=== PATIENT | male | born 1990 | race African-American/Black ===

== ENCOUNTER 2022-09-28 14:47 | Outpatient (CLI) | payer OTHER, SELFPAY ==
[2022-09-28 15:49] LABS: Hematocrit 43.9 % (42.0-52.0); Hemoglobin 13.7 g/dL (14.0-18.0); Mean Corpuscular HGB Conc 31.2 g/dl (32-36); Mean Corpuscular Volume 86.4 fl (80-100); Mean Platelet Volume 10.2 fl (7.4-10.4); Platelet Count Result 304 k/mm3 (150-375); Red Blood Count 5.08 M/mm3 (4.6-6.20); Red Cell Distribution Width 12.8 % (11.5-14.5); White Blood Count 3.4 K/mm3 (4.5-10.0)
[2022-09-28 16:33] LABS: Basophils Absolute Manual 0.03 K/mm3 (0.0-0.1); Basophils Percent Manual 1 % (0-1); Lymphocytes Absolute Manual 1.97 K/mm3 (1.1-4.5); Monocytes Percent Manual 9 % (3-9); Neutrophils Percent Manual 32 % (46-73); Total Cells Counted 100
[2022-09-28 16:34] LABS: Platelet Estimate Adequate (Adequate)
[2022-09-28 16:35] LABS: Atypical Lymphocytes Present; Hypochromasia 1+ (NORMAL); Schistocytes None Seen (NORMAL)
[2022-09-28 16:38] LABS: Large Platelets Present
[2022-09-28 17:14] LABS: Folic Acid 7.7 ng/mL (2.76->20)
[2022-09-28 17:58] LABS: Iron 107 ug/dL (49-181)
[2022-09-28 18:07] LABS: Percent Iron Saturation 34 % (20-50)
== END 2022-09-28 14:48 | disposition home or self-care (01) ==
LOC: ANHLAB 14:51
PROVIDERS: Visit Provider Internal Medicine Hematology & Oncology
DX: D72.819 Decreased white blood cell count, unspecified (principal)
CPT/HCPCS: 36415; 82607; 82728; 82746; 83540; 83550; 85025

== ENCOUNTER 2022-10-05 09:33 | Outpatient (CLI) | payer OTHER, SELFPAY ==
--- NOTE | ~2022-10-05 | US_ITS ---
Abdominal Sonogram: Real-time sonographic imaging of the abdomen was performed. Clinical History: Leukopenia Findings: The liver appears normal with no evidence of mass lesion or bile duct dilatation. Main por trudi vein demonstrates normal direction of flow. The spleen is normal in size without evidence of foca l lesion. The gallbladder is well distended, and appears normal with no evidence of gallstone or wal l thickening. The common bile duct measures 3 mm. The visualized pancreas, aorta, and IVC are unrema rkable. The right kidney measures 9.6 cm in length and the left kidney measures 10.1 cm. There is n o hydronephrosis or renal calculus. Impression: Unremarkable abdominal ultrasound. Reviewed, dictated and finalized at location . Impression: Unremarkable abdominal ultrasound.
== END 2022-10-05 09:34 | disposition home or self-care (01) ==
PROVIDERS: PCP Internal Medicine; Visit Provider Internal Medicine Hematology & Oncology
DX: D72.819 Decreased white blood cell count, unspecified (principal)
CPT/HCPCS: 76700

== ENCOUNTER 2022-10-26 13:03 | Outpatient (CLI) | payer OTHER, SELFPAY ==
[2022-10-26 14:16] LABS: Eosinophils Absolute Auto 0.1 K/mm3 (0-0.3); Eosinophils Percent Auto 2.6 % (0-4.4); Hematocrit 49.2 % (42.0-52.0); Hemoglobin 15.2 g/dL (14.0-18.0); Immature Granulocyte Absolute 0.01 K/mm3 (0.00-0.031); Immature Granulocyte Percent A 0.3 % (0-0.5); Lymphocytes Percent Auto 49.3 % (18.3-44.2); Mean Corpuscular HGB Conc 30.9 g/dl (32-36); Mean Corpuscular Hemoglobin 26.5 pg (26-34); Mean Corpuscular Volume 85.9 fl (80-100); Mean Platelet Volume 9.8 fl (7.4-10.4); Monocytes Absolute Auto 0.3 K/mm3 (0.1-0.6); Monocytes Percent Auto 9.9 % (2.6-8.5); Neutrophils Absolute Auto 1.1 K/mm3 (1.3-6.7); Neutrophils Percent Auto 36.9 % (45.5-73.1); Platelet Count Result 326 k/mm3 (150-375); Red Blood Count 5.73 M/mm3 (4.6-6.20); Red Cell Distribution Width 12.6 % (11.5-14.5)
[2022-10-26 14:23] LABS: Alanine Aminotransferase 13 U/L (6-50); Albumin Level 4.6 g/dL (3.5-5.1); Alkaline Phosphatase 58 U/L (38-126); Anion Gap 7 mmol/L (8-16); Aspartate Amino Transferase 23 U/L (17-59); Bilirubin,Total 0.6 mg/dL (0.2-1.3); Blood Urea Nitrogen 17 mg/dL (9-20); Calcium 9.1 mg/dL (8.4-10.2); Carbon Dioxide 30 mmol/L (22-30); Chloride 101 mmol/L (98-107); Estimated Glomerular Filt Rate > 60; Glucose 90 mg/dL (65-110); Lactate Dehydrogenase 179 U/L (120-246); Potassium 4.5 mmol/L (3.4-5.0); Sodium 138 mmol/L (137-145)
[2022-10-26 15:04] LABS: HIV 1/2 Ab P24 Ag Result Negative (Negative)
== END 2022-10-26 13:04 | disposition home or self-care (01) ==
PROVIDERS: PCP Internal Medicine; Visit Provider Internal Medicine Hematology & Oncology
DX: D72.819 Decreased white blood cell count, unspecified (principal)
CPT/HCPCS: 36415; 80053; 83615; 85025; 86038; 86703; 88184; G0432

== ENCOUNTER 2023-05-31 17:18 | Outpatient (CLI) | payer OTHER, SELFPAY ==
[2023-05-31 17:37] LABS: Basophils Percent Auto 0.4 % (0.2-1.2); Eosinophils Absolute Auto 0.1 K/mm3 (0-0.3); Eosinophils Percent Auto 2.5 % (0-4.4); Hematocrit 42.6 % (42.0-52.0); Hemoglobin 13.1 g/dL (14.0-18.0); Lymphocytes Absolute Auto 2.43 K/mm3 (0.9-3.2); Lymphocytes Percent Auto 50.8 % (18.3-44.2); Mean Corpuscular HGB Conc 30.8 g/dl (32-36); Mean Corpuscular Hemoglobin 26.4 pg (26-34); Mean Corpuscular Volume 85.7 fl (80-100); Mean Platelet Volume 9.8 fl (7.4-10.4); Monocytes Absolute Auto 0.4 K/mm3 (0.1-0.6); Monocytes Percent Auto 8.8 % (2.6-8.5); Neutrophils Absolute Auto 1.8 K/mm3 (1.3-6.7); Neutrophils Percent Auto 37.5 % (45.5-73.1); Platelet Count Result 302 k/mm3 (150-375); Red Blood Count 4.97 M/mm3 (4.6-6.20); White Blood Count 4.8 K/mm3 (4.5-10.0)
[2023-05-31 17:44] LABS: Alanine Aminotransferase 9 U/L (6-50); Albumin Level 4.3 g/dL (3.5-5.1); Alkaline Phosphatase 64 U/L (38-126); Anion Gap 6 mmol/L (4-12); Aspartate Amino Transferase 20 U/L (17-59); Bilirubin,Total 0.6 mg/dL (0.2-1.3); Blood Urea Nitrogen 16 mg/dL (9-20); Calcium 9.1 mg/dL (8.4-10.2); Carbon Dioxide 30 mmol/L (22-30); Chloride 105 mmol/L (98-107); Estimated Glomerular Filt Rate > 60; Glucose 73 mg/dL (65-110); Potassium 4.2 mmol/L (3.4-5.0); Sodium 141 mmol/L (137-145)
[2023-05-31 18:50] LABS: Folic Acid 7.7 ng/mL (2.76->20)
== END 2023-05-31 17:19 | disposition home or self-care (01) ==
LOC: ANHLAB 17:19
PROVIDERS: Visit Provider Student in an Organized Health Care Education/Training Program
DX: D72.819 Decreased white blood cell count, unspecified (principal)
CPT/HCPCS: 36415; 80053; 82607; 82746; 85025

== ENCOUNTER 2024-05-01 10:14 | Emergency (ER) | payer OTHER, SELFPAY ==
--- NOTE | ~2024-05-01 | XR_ITS ---
EXAMINATION: XR chest 2V DATE: 05/01/2024 11:00 INDICATION: Lightheadedness. TECHNIQUE: Frontal and lateral views of the chest were obtained. COMPARISON: Chest 2 views 07/12/2018 FINDINGS: There is no pneumonia, pleural effusion, or pneumothorax. The heart size is normal. IMPRESSION: 1. No acute cardiopulmonary disease. Reviewed, dictated and finalized at location A. ERING MACHINE OFF BEARER
--- NOTE | 2024-05-01 10:17 | ECG_ITS ---
Test Date: 2024-05-01 10:21:10 Measurements Intervals [place] Rate: 73 P: 77 MI: 164 QRS: 83 QRSD: 91 T: 51 QT: 347 QTc: 383 Interpretive Statements SINUS RHYTHM NORMAL ECG No previous ECG available for comparison Electronically Signed On 05-01-2024 10:27:12 DRY PAN FEEDER by Douglas Jimenez D.O.
--- NOTE | 2024-05-01 10:18 | ED.GENADULT ---
HPI - General Adult General Chief complaint: Unspecified Stated complaint: lightheaded, chest discomfort, difficulty swallow Time Seen by Provider: 05/01/24 10:18 Focused HPI: This is a 33 year old male that presents to the ER for possible reaction to Amoxicillin. Reports he has had chest tightness, palpitations since taking the medication this morning. Recently had a root canal and was prescribed the antibiotic after. Reports he has had difficulty swallowing for a while. Reports he has had an endoscopy for this in the past. Denies shortness of breath, rash. GENERAL: Well-appearing, well-nourished, and in no acute distress. HEAD: Normocephalic, atraumatic. CHEST: Clear to auscultation. ?No respiratory distress. HEART: Regular rate and rhythm.? NEURO: ?Alert and oriented x3. Patient screened in triage and initial orders placed.? ?Additional care and disposition to be based upon?diagnostic testing and treatment. Related Data Home Medications ?Medication ?Instructions ?Recorded ?Confirmed ?Last Taken ?Type omeprazole 20 mg-sodium 1 packet PO DAILY 05/04/23 06/12/23 Unknown History bicarbonate 1,680 mg oral packet Allergies Allergy/AdvReac Type Severity Reaction Status Date / Time No Known Allergies Allergy Verified 06/12/23 13:04 Review of Systems Review of Systems: All systems reviewed & are unremarkable except as noted in HPI and below PMFSH Past Medical History Medical History (Updated 05/02/24 @ 00:01 by Hemal Vargas) Anxiety Asthma Surgical History Surgical History (Updated 03/21/19 @ 21:58 by Angie Baron) History of repair of ACL right Social History Social History (Updated 03/21/19 @ 21:59 by Angie Baron) Smoking status: Never smoker Gender identity (if verbalized by the patient): Male Spiritual care concerns: No Exam Narrative: GENERAL: Well-appearing, well-nourished, and in no acute distress. HEAD: Normocephalic, atraumatic. EYES: EOMI. ENT: Nares clear, no rhinorrhea or epistaxis. Mucous membranes moist. Oropharynx without tonsillar hypertrophy exudate or other lesions. NECK: Supple. No adenopathy or masses CHEST: Clear to auscultation. No respiratory distress. No wheezes rales or rhonchi HEART: Regular rate and rhythm. No murmur heard. Normal peripheral pulses. EXTREMITIES: Normal range of motion. No edema. SKIN: Warm, dry, no rash. NEURO: No focal deficits. Alert and oriented x3. PSYCH: Normal mood and affect Course Vital Signs Vital signs: Vital Signs Temperature 97.8 F 05/01/24 10:29 Pulse Rate 81 05/01/24 10:29 Respiratory Rate 14 05/01/24 10:29 Blood Pressure 125/78 05/01/24 10:29 Pulse Oximetry 98 05/01/24 10:29 Temperature 98.6 F 05/01/24 16:33 Pulse Rate 60 05/01/24 16:33 Respiratory Rate 14 05/01/24 16:33 Blood Pressure 124/83 05/01/24 16:33 Pulse Oximetry 99 05/01/24 16:33 Oxygen Delivery Room Air 05/01/24 13:28 Medical Decision Making Vital Signs Vital Signs: Vital Signs Temperature 97.8 F 05/01/24 10:29 Pulse Rate 81 05/01/24 10:29 Respiratory Rate 14 05/01/24 10:29 Blood Pressure 125/78 05/01/24 10:29 Pulse Oximetry 98 05/01/24 10:29 Temperature 98.6 F 05/01/24 16:33 Pulse Rate 60 05/01/24 16:33 Respiratory Rate 14 05/01/24 16:33 Blood Pressure 124/83 05/01/24 16:33 Pulse Oximetry 99 05/01/24 16:33 Oxygen Delivery Room Air 05/01/24 13:28 Lab Data 05/01/24 10:26 05/01/24 10:26 Labs: Lab Results 05/01/24 05/01/24 05/01/24 Range/Units 10:26 13:30 15:48 WBC 4.2 L (4.5-10.0) K/mm3 RBC 5.24 (4.6-6.20) M/mm3 Hgb 13.8 L (14.0-18.0) g/dL Hct 44.4 (42.0-52.0) % MCV 84.7 (80-100) fl MCH 26.3 (26-34) pg MCHC 31.1 L (32-36) g/dl RDW 13.3 (11.5-14.5) % Plt Count 312 (150-375) k/mm3 MPV 10.0 (7.4-10.4) fl Immature Gran % (Auto) 0.2 (0-0.5) % Neut % (Auto) 54.8 (45.5-73.1) % Lymph % (Auto) 35.8 (18.3-44.2) % Mayes % (Auto) 7.7 (2.6-8.5) % Eos % (Auto) 1.0 (0-4.4) % Baso % (Auto) 0.5 (0.2-1.2) % Lymph # (Auto) 1.49 (0.9-3.2) K/mm3 Mayes # (Auto) 0.3 (0.1-0.6) K/mm3 Eos # (Auto) 0.0 (0-0.3) K/mm3 Baso # (Auto) 0.0 (0.0-0.1) K/mm3 Abs Immat Gran (auto) 0.01 (0.00-0.031) K/mm3 Absolute Neuts (auto) 2.3 (1.3-6.7) K/mm3 Absolute Nucleated RBC 0.000 (0.0-0.012) K/mm3 Nucleated RBC % 0.0 (0.0-0.2) % PT 14.0 (11.1-14.7) Seconds INR 1.0 APTT 34.2 (22.3-36.8) Seconds Sodium 140 (137-145) mmol/L Potassium 4.0 (3.4-5.0) mmol/L Chloride 102 (98-107) mmol/L Carbon Dioxide 26 (22-30) mmol/L Anion Gap 12 (4-12) mmol/L BUN 11 D (9-20) mg/dL Creatinine 0.87 (0.7-1.3) mg/dL Estim Creat Clear Calc Not Reportable Estimated GFR > 60 (59 - ) Glucose 99 (65-110) mg/dL Calcium 9.1 (8.4-10.2) mg/dL Total Bilirubin 0.6 (0.2-1.3) mg/dL AST 18 (17-59) U/L ALT 14 (6-50) U/L Alkaline Phosphatase 60 (38-126) U/L Troponin I < 0.012 < 0.012 < 0.012 (0.000-0.034) ng/mL Total Protein 7.0 (6.3-8.2) g/dL Albumin 4.3 (3.5-5.1) g/dL Lipase 74 (23-300) U/L Imaging Data Radiologist's impression: ITS Impressions Chest X-Ray 05/01/24 11:03 IMPRESSION: 1. No acute cardiopulmonary disease. Critical Care Time Critical Care Time Critical Care Time: No Discharge Plan Discharge Clinical Impression: Esophagitis Patient Disposition: Home, Self-Care Condition: Stable Instructions: Corrosive Esophagitis (ED) Additional Instructions: Return to the emergency department if you develop severe abdominal pain, severe nausea and vomiting to the point where you are unable to keep down fluids, if you develop chest pain or difficulty breathing, blood in your stool, dizziness or fainting, or if you develop any other new or concerning symptoms as these could be signs of more serious medical illness. Try to stay well hydrated. Patient Language: German Prescriptions: New omeprazole 40 mg capsule,delayed release(DR/EC) 40 mg PO BID Qty: 30 0RF lidocaine HCl [Lidocaine Viscous] 2 % solution 1 applic mucous membrane TID Qty: 300 0RF lidocaine HCl [Lidocaine Viscous] 2 % solution 1 applic mucous membrane TID PRN (Reason: pain) Qty: 300 0RF omeprazole 40 mg capsule,delayed release(DR/EC) 40 mg PO DAILY Qty: 30 0RF No Action omeprazole-sodium bicarbonate 20-1,680 mg Packet 1 packet PO DAILY Follow-up/Referrals: UNKNOWN,DOCTOR [Primary Care Provider] - 1 Week
[2024-05-01 10:29] VITALS: BP 125/78; PULSE 81; RESP 14; TEMP 36.6; O2SAT 98
[2024-05-01 10:33] LABS: Basophils Percent Auto 0.5 % (0.2-1.2); Hematocrit 44.4 % (42.0-52.0); Hemoglobin 13.8 g/dL (14.0-18.0); Immature Granulocyte Absolute 0.01 K/mm3 (0.00-0.031); Immature Granulocyte Percent A 0.2 % (0-0.5); Lymphocytes Absolute Auto 1.49 K/mm3 (0.9-3.2); Lymphocytes Percent Auto 35.8 % (18.3-44.2); Mean Corpuscular HGB Conc 31.1 g/dl (32-36); Mean Corpuscular Hemoglobin 26.3 pg (26-34); Mean Corpuscular Volume 84.7 fl (80-100); Monocytes Absolute Auto 0.3 K/mm3 (0.1-0.6); Monocytes Percent Auto 7.7 % (2.6-8.5); Neutrophils Absolute Auto 2.3 K/mm3 (1.3-6.7); Neutrophils Percent Auto 54.8 % (45.5-73.1); Platelet Count Result 312 k/mm3 (150-375); Red Blood Count 5.24 M/mm3 (4.6-6.20); Red Cell Distribution Width 13.3 % (11.5-14.5); White Blood Count 4.2 K/mm3 (4.5-10.0)
[2024-05-01 10:44] LABS: Alanine Aminotransferase 14 U/L (6-50); Albumin Level 4.3 g/dL (3.5-5.1); Alkaline Phosphatase 60 U/L (38-126); Anion Gap 12 mmol/L (4-12); Aspartate Amino Transferase 18 U/L (17-59); Bilirubin,Total 0.6 mg/dL (0.2-1.3); Blood Urea Nitrogen 11 mg/dL (9-20); Calcium 9.1 mg/dL (8.4-10.2); Carbon Dioxide 26 mmol/L (22-30); Chloride 102 mmol/L (98-107); Estimated Glomerular Filt Rate > 60; Glucose 99 mg/dL (65-110); Lipase 74 U/L (23-300); Sodium 140 mmol/L (137-145)
[2024-05-01 10:56] LABS: Troponin I < 0.012 ng/mL (0.000-0.034)
[2024-05-01 11:04] LABS: Partial Thromboplastin Time 34.2 Seconds (22.3-36.8)
--- OUTSIDE RECORDS SUMMARY | 2024-05-01 11:43 | XMS_ITS | Clinical Summary ---
Author Organization [facility] Address [address] Attn: Epic Prelude ADT FAIZAN BELTRAN [id number] Care Team Providers Care Justice Professor Name Role Phone Joe Martinez MD Primary Care Provider [phone] Allergies No known active allergies Medications sucralfate (Carafate) 100 mg/mL suspension Take 10 mL (1 Gram) by mouth every 6 hours. 414 mL 1 03/10/19 24 Active pantoprazole (PROTONIX) 40 mg Tablet, Delayed Release (E.C.) Take 1 Tablet by mouth daily. 09/12/19 24 Active cyanocobalamin (VITAMIN B-12) 1,000 mcg/mL Solution Inject 1 mL (1,000 mcg) by intramuscular injection every 30 days. 1 mL 5 10/12/19 24 Active Needle, Disp, 22 G 22 gauge x 1 1/2 Needle Use as directed with vitamin B 12 injection intramuscularly on a monthly basis 1 Each 4 10/12/19 24 Active Active Problems No known active problems Encounters Date Type Department Care Team Description 04/30/2024 External Device Data [facility] Provider, Abstract 03/26/2024 External Device Data [facility] Provider, Abstract 03/19/2024 External Device Data [facility] Provider, Abstract 02/09/2024 Telephone [facility] Oncology and Hematology - [place] [address] [place] [address] Abel Locke MD lab work for appointment 02/08/2024 Orders Only [facility] Oncology and Hematology - [place] [address] [place] [address] Abel Locke MD Chronic anemia (Primary Dx); Leukopenia, unspecified type from Last 3 Months Family History Relation Name Status Comments Brother Alive Father Alive Mother Alive Sister Alive Social History Tobacco Use Types Packs/Day Years Used Date Smoking Tobacco: Never Smokeless Tobacco: Never Tobacco Cessation:Counseling Given: Not Answered Alcohol Use Standard Drinks/Week Comments Not Currently 0 (1 standard drink = 0.6 oz pur e alcohol) Sex and Gender Information Value Date Recorded Sex Assigned at Not on file Legal Sex Male 1:39 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 Gender Identity Not on file Sexual Orientation Not on file Last Filed Vital Signs Vital Sign Reading Time Taken Comments Blood Pressure 122/83 10/12/2023 1:50 PM CDT Pulse 72 10/12/2023 1:50 PM CDT Temperature 36.7 C (98 F) 10/12/2023 1:50 PM CDT Respiratory Rate 16 10/12/2023 1:50 PM CDT Oxygen Saturation 93% 10/12/2023 1:50 PM CDT Inhaled Oxygen Concentration - - Weight 75.3 kg (166 lb) 10/12/2023 1:50 PM CDT Height 188 cm (6' 2 ) 09/15/2022 3:54 PM CDT Body Mass Index 21.31 09/15/2022 3:54 PM CDT Plan of Treatment Upcoming Encounters Date Type Department Care Team (Late st Contact Info) Description 06/03/2024 1:15 PM CDT Office Visit [facility] Oncology and Hematology - [place] [address] [place] [address] [facility] [address] [place] [address] Abel Locke MD [address] [facility] [address] [place] [address] Health Maintenance Due Date Last Done Comments INFLUENZA VACCINE (#1) 2023 Preventative Visit- Commercial 03/06/2024 DTAP/TDAP/TD VACCINES (8 - Td or Tdap) 11/10/2027 11/09/2017, 08/24/2006, 10/23/1995, Additional history exists HEPATITIS B VACCINES Completed 06/18/2002, 03/06/2000, 09/13/1996 HPV VACCINES Aged Out No longer eligi ble based on patient's age to complete this topic Insurance INDIVIDUAL EXCHANGE [id number] INDIVIDUAL EXCHANGE [id number] Care Teams Justice Professor Relationship Specialty Start Date End Date Joe Martinez MD [address] [place], [place] [phone] PCP - General Internal Medicine 09/15/22
--- OUTSIDE RECORDS SUMMARY | 2024-05-01 11:43 | XMS_ITS | Encounter Summary ---
Author Organization [facility] Address [address] [place] [address] Care Team Providers Care Flight Information Expediter Name Role Phone Joe Martinez MD Primary Care Provider [phone] Encounter Details Date Type Department Care Team (Late st Contact Info) Description 04/30/2024 External Device Data [facility] Provider, Abstract NO ADDRESS ON FILE Social History Tobacco Use Types Packs/Day Years Used Date Smoking Tobacco: Never Smokeless Tobacco: Never Alcohol Use Standard Drinks/Week Comments Not Currently 0 (1 standard drink = 0.6 oz pur e alcohol) Sex and Gender Information Value Date Recorded Sex Assigned at Not on file Legal Sex Male 1:39 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 Gender Identity Not on file Sexual Orientation Not on file documented as of this encounter Plan of Treatment Upcoming Encounters Date Type Department Care Team (Late st Contact Info) Description 06/03/2024 1:15 PM CDT Office Visit [facility] Oncology and Hematology - [place] [address] [place] [phone] [place] [address] [place] [address] [address] [place] [address] documented as of this encounter Visit Diagnoses Not on filedocumented in this encounter Care Teams Flight Information Expediter Relationship Specialty Start Date End Date Joe Martinez MD [address] [place] [phone] PCP - General Internal Medicine 09/15/22 documented as of this encounter
--- OUTSIDE RECORDS SUMMARY | 2024-05-01 11:43 | XMS_ITS | Data Portability ---
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 Role Phone LORA MARTINEZ Primary Care Provider Unavailabl e Assessment Encounter Date Assessment Date Assessment LastModified by Organization Details LastModified Time 05/15/2023 05/15/2023 Conservative measures for GERD in addition to the medication follow-up on leukopenia Debrox eardrops Follow-up 6 months Not available 05/15/2023 21:48:10 12/05/2023 12/05/2023 blood work has been ordered safe sex practices have been discussed he will follow up with me in 4-6 months continue current therapy refill his omeprazole [email or web address] Not available 12/17/2023 15:52:44 03/20/2024 03/20/2024 obtain his upper endoscopy report repeat his thyroid studies patient never did get his HIV testing we will go ahead and arrange for that switch him to omeprazole as he continues to have some upper GI symptomatology would like for him to see GI. If he has trouble swallowing the omeprazole we may have to go lansoprazole solutabs. He needs to continue with his B12 as. He has been Hematology Oncology for that with regards to his leukopenia and mild anemia. Follow up with me in 4 months [email or web address] Not available 03/20/2024 22:00:54 04/16/2024 04/16/2024 he has been seen by Hematology he needs his B12 shots also needs to see GI again because he has the ongoing issues with swallowing. I will refill his Prevacid he has some insurance issues apparently I am not on his plan and he is going to have to decide whether he switches insurances or he transfers to another physician who is in network for him he will let us know as soon as possible [email or web address] Not available 04/16/2024 22:13:15 Plan of Treatment Reminders Order Date Submit Date Provider Last Modified By Organization Details Last Modified Time Details Appointments None recorded. Lab T3, free, serum or plasma 2024 025 MAHENDRAJANE Gilbert, [address], [place], [address], 5 13:14:27 TSH + free T4, serum 2024 025 MAHENDRAJANE Gilbert, [address], [place], [address], 5 13:14:25 HIV 1 + 2 RNA panel, RENO+probe, serum or plasma 2024 025 MAHENDRAJANE Gilbert, [address], [place], [address], 5 19:08:26 [facility] w/ auto diff [facility] [address], [place], [address], 5 13:14:26 HIV 1 + 2 RNA panel, RENO+probe, serum or plasma [email or web address], [address], [place], [address], 4 12:25:08 RPR (rapid plasma reagin), serum 2023 024 MAHENDRAJANE Gilbert, [address], [place], [address], 4 20:10:02 hsv (1+2) igg, serum [facility] [address], [place], [address], 4 20:09:55 CT + NG RNA, urine 2023 024 [email or web address] [address], [place], [address], 4 12:46:27 vitamin B12 + folate, serum or blood 2023 024 [facility], [address], [place], [address], 4 20:09:59 CBC w/ auto diff 2023 024 [facility], [address], [place], [address], 4 20:10:00 CMP, serum or plasma 2023 024 [facility], [address], [place], [address], 4 20:09:58 T3, free, serum or plasma 2023 024 [facility], [address], [place], [address], 4 20:10:03 TSH + free T4, serum 2023 024 [facility], [address], [place], [address], 4 20:09:57 CBC w/ auto diff 2023 024 [facility], [address], [place], [address], 09:17:16 CMP, serum or plasma 2023 024 [facility], [address], [place], [address], 09:17:15 Referral None recorded. Procedures None recorded. Surgeries None recorded. Imaging None recorded. Medication Orders lansoprazo le 30 mg capsule,de layed release [address] [id number], [address], [place], [place], [id number], 5 17:51:56 omeprazole 20 mg capsule,de layed release [address] [id number], [address] , [place], [place], [id number], 5 17:26:38 Debrox 6.5 % ear drops 2023 024 [id number], [address] , [place], [place], [id number], 15:06:38 Patient TargetsNo targets recorded. Patient InstructionsNo instructions recorded. Reason for Referral None Reported. Results Created Date Observation Date Name Description Value Unit Range Abnormal Flag Note LastModifiedBy Organization Detail LastModifiedTime 12/05/1912/06/2023 COMP. METAB OLIC PANEL (14) glucose 70 mg/dL 70-99 Not Available [facility] ([facility]) [address] [facility] [address], [place], [address], 12/06/2023 09:17:15 12/05/19 24 12/06/2023 COMP. METAB OLIC PANEL (14) BUN 12 mg/dL 6-20 Not Available [facility] ([facility]) [address] [place], [address], 12/06/2023 09:17:15 12/05/19 24 12/06/2023 COMP. METAB OLIC PANEL (14) creatinine 1.11 mg/dL 0.76-1 .27 Not Available [facility] ([facility]) [address] [facility] [place], [address], 12/06/2023 09:17:15 12/05/19 24 12/06/2023 COMP. METAB OLIC PANEL (14) eGFR 90 mL/mi n/1.7 3 >59 Not Available [facility] ([facility]) [address] [facility] [place], [address], 12/06/2023 09:17:15 12/05/19 24 12/06/2023 COMP. METAB OLIC PANEL (14) BUN/creatini ne ratio 11 9-20 Not Available [facility] ([facility]) [address] [facility] [place], [address], 12/06/2023 09:17:15 12/05/19 24 12/06/2023 COMP. METAB OLIC PANEL (14) sodium 141 mmol/ L 134-14 4 Not Available [facility] ([facility]) [address] [facility] [place], [address], 12/06/2023 09:17:15 12/05/19 24 12/06/2023 COMP. METAB OLIC PANEL (14) potassium 4.2 mmol/ L 3.5-5. 2 Not Available [facility] ([facility]) [address] [facility] [place], [address], 12/06/2023 09:17:15 12/05/19 24 12/06/2023 COMP. METAB OLIC PANEL (14) chloride 100 mmol/ L 96-106 Not Available [facility] ([facility]) [address] [facility] [place], [address], 12/06/2023 09:17:15 12/05/19 24 12/06/2023 COMP. METAB OLIC PANEL (14) carbon dioxide, total 25 mmol/ L 20-29 Not Available [facility] ([facility]) [address] [facility], [place], [address], 12/06/2023 09:17:15 12/05/1912/06/2023 COMP. METAB OLIC PANEL (14) calcium 9.7 mg/dL 8.7-10 .2 Not Available [facility] ([facility]) [address] [place], [address], 12/06/2023 09:17:15 12/05/1912/06/2023 COMP. METAB OLIC PANEL (14) protein, total 7.3 g/dL 6.0-8. 5 Not Available [facility] ([facility] [address] [place], [address], 12/06/2023 09:17:15 12/05/1912/06/2023 COMP. METAB OLIC PANEL (14) albumin 4.7 g/dL 4.1-5. 1 Not Available [facility] ([facility]) [address] [facility] [place], [address], 12/06/2023 09:17:15 12/05/1912/06/2023 COMP. METAB OLIC PANEL (14) globulin, total 2.6 g/dL 1.5-4. 5 Not Available [facility] ([facility]) [address] [facility] [place], [address], 12/06/2023 09:17:15 12/05/1912/06/2023 COMP. METAB OLIC PANEL (14) bilirubin, total 0.3 mg/dL 0.0-1. 2 Not Available [facility] ([facility]) [address] [facility] [place], [address], 12/06/2023 09:17:15 12/05/1912/06/2023 COMP. METAB OLIC PANEL (14) alkaline phosphatase 76 IU/L 44-121 Not Available [facility]) [address] [facility] [place], [address], 12/06/2023 09:17:15 12/05/1912/06/2023 COMP. METAB OLIC PANEL (14) AST (SGOT) 15 IU/L 0-40 Not Available [facility] ([facility]) [address] [facility], [place], [address], 12/06/2023 09:17:15 12/05/1912/06/2023 COMP. METAB OLIC PANEL (14) ALT (SGPT) 7 IU/L 0-44 Not Available [facility] ([facility]) [address] [facility], [place], [address], 12/06/2023 09:17:15 12/05/1912/06/2023 CBC WITH DIFFE RENTI AL/PL ATELE T WBC 3.8 x10e3 /uL 3.4-10 .8 Not Available [facility] ([facility]) [address] [facility], [place], [address], 12/06/2023 09:17:16 12/05/1912/06/2023 CBC WITH DIFFE RENTI AL/PL ATELE T RBC 5.41 x10e6 /uL 4.14-5 .80 Not Available [facility] ([facility]) [address] [facility], [place], [address], 12/06/2023 09:17:16 12/05/1912/06/2023 CBC WITH DIFFE RENTI AL/PL ATELE T hemoglobin 14.2 g/dL 13.0-1 7.7 Not Available [facility] ([facility]) [address] [place], [address], 12/06/2023 09:17:16 12/05/1912/06/2023 CBC WITH DIFFE RENTI AL/PL ATELE T hematocrit 44.9 % 37.5-5 1.0 Not Available [facility] ([facility]) [address] [place], [address], 12/06/2023 09:17:16 12/05/1912/06/2023 CBC WITH DIFFE RENTI AL/PL ATELE T MCV 83 fL 79-97 Not Available [facility] ([facility]) [address] [facility], [place], [address], 12/06/2023 09:17:16 12/05/1912/06/2023 CBC WITH DIFFE RENTI AL/PL ATELE T MCH 26.2 pg 26.6-3 3.0 below low normal Not Available [facility] ([facility]) [address] [facility], [place], [address], 12/06/2023 09:17:16 12/05/1912/06/2023 CBC WITH DIFFE RENTI AL/PL ATELE T MCHC 31.6 g/dL 31.5-3 5.7 Not Available [facility] ([facility]) [address] [facility], [place], [address], 12/06/2023 09:17:16 12/05/1912/06/2023 CBC WITH DIFFE RENTI AL/PL ATELE T RDW 12.8 % 11.6-1 5.4 Not Available [facility] ([facility]) [address] [facility], [place], [address], 12/06/2023 09:17:16 12/05/1912/06/2023 CBC WITH DIFFE RENTI AL/PL ATELE T platelets 317 x10e3 /uL 150-45 0 Not Available [facility] ([facility]) [address] [facility], [place], [address], 12/06/2023 09:17:16 12/05/1912/06/2023 CBC WITH DIFFE RENTI AL/PL ATELE T neutrophils 30 % notest ab. Not Available [facility] ([facility]) [address] [facility], [place], [address], 12/06/2023 09:17:16 12/05/1912/06/2023 CBC WITH DIFFE RENTI AL/PL ATELE T lymphs 58 % notest ab. Not Available [facility] ([facility]) [address] [facility], [place], [address], 12/06/2023 09:17:16 12/05/19 24 12/06/2023 CBC WITH DIFFE RENTI AL/PL ATELE T monocytes 8 % notest ab. Not Available [facility] ([facility]) [address] [facility], [place], [address], 12/06/2023 09:17:16 12/05/1912/06/2023 CBC WITH DIFFE RENTI AL/PL ATELE T eos 3 % notest ab. Not Available [facility] ([facility]) [address] [facility], [place], [address], 12/06/2023 09:17:16 12/05/1912/06/2023 CBC WITH DIFFE RENTI AL/PL ATELE T basos 1 % notest ab. Not Available [facility] ([facility]) [address] [facility], [place], [address], 12/06/2023 09:17:16 12/05/1912/06/2023 CBC WITH DIFFE RENTI AL/PL ATELE T neutrophils (absolute) 1.1 x10e3 /uL 1.4-7. 0 below low normal Not Available [facility] ([facility]) [address] [facility], [place], [address], 12/06/2023 09:17:16 12/05/1912/06/2023 CBC WITH DIFFE RENTI AL/PL ATELE T lymphs (absolute) 2.2 x10e3 /uL 0.7-3. 1 Not Available [facility] ([facility]) [address] [facility], [place], [address], 12/06/2023 09:17:16 12/05/1912/06/2023 CBC WITH DIFFE RENTI AL/PL ATELE T monocytes(ab solute) 0.3 x10e3 /uL 0.1-0. 9 Not Available [facility] ([facility]) [address] [facility], [place], [address], 12/06/2023 09:17:16 12/05/19 24 12/06/2023 CBC WITH DIFFE RENTI AL/PL ATELE T eos (absolute) 0.1 x10e3 /uL 0.0-0. 4 Not Available [facility] ([facility]) [address] [facility], [place], [address], 12/06/2023 09:17:16 12/05/1912/06/2023 CBC WITH DIFFE RENTI AL/PL ATELE T baso (absolute) 0.0 x10e3 /uL 0.0-0. 2 Not Available [facility] ([facility]) [address] [facility], [place], [address], 12/06/2023 09:17:16 12/05/1912/06/2023 CBC WITH DIFFE RENTI AL/PL ATELE T immature granulocytes 0 % notest ab. Not Available [facility] ([facility]) [address] [facility], [place], [address], 12/06/2023 09:17:16 12/05/1912/06/2023 CBC WITH DIFFE RENTI AL/PL ATELE T immature grans (abs) 0.0 x10e3 /uL 0.0-0. 1 Not Available [facility] ([facility]) [address] [facility], [place], [address], 12/06/2023 09:17:16 12/05/1912/06/2023 HSV 1 AND 2 AB, IGG hsv 1 IgG, type spec <0.91 index 0.00-0 .90 Negat roberto carlos <0.91 Equiv ocal 0.91 - 1.09 Posit roberto carlos >1.09 Note: Negat roberto carlos indic ates no antib odies detec ymrna to HSV-1 . Equiv ocal may sugge st early infec tion. If clini claudia appro priat e, retes t at later date. Posit roberto carlos indic ates antib odies detec myrna to HSV-1 . Eff ectiv e Octob er 2023 the refer ence inter glenroy will be clemens ing to: Non React roberto carlos. Not Available [facility] ([facility]) [address], [place], [address], 12/07/2023 20:09:55 12/05/19 24 12/06/2023 HSV 1 AND 2 AB, IGG hsv 2 IgG, type spec <0.91 Negat roberto carlos <0.91 Equiv ocal 0.91 - 1.09 Posit roberto carlos >1.09 HSV-2 Antib gypsy Inter preta tion: Curre nt guide lines and recom menda tions do not recom mend routi ne scree leeanna for HSV-2 in asymp tomat ic indiv idual s, inclu ding those that are pregn ant. A negat roberto carlos antib gypsy resul t indic ates no detec table antib odies to HSV-2 were found . If recen t expos ure is suspe cted, retes t in 4 to 6 weeks . Equiv ocal sampl es shoul d be retes myrna in 4 to 6 weeks . A posit roberto carlos resul t indic ates the prese nce of detec table IgG antib gypsy to HSV-2 . FALSE POSIT ROBERTO CARLOS RESUL TS MAY OCCUR . Repea t testi ng, or testi ng by a diffe rent andrewo karen, may be indic ated in some setti ngs (e.g. patie nts with low likel ihood of HSV infec tion) . If clini claudia appro priat e, retes t 4 to 6 weeks later . HSV-2 IgG antib gypsy testi ng resul ts shoul d be clini claudia corre lated . Eff ectiv e Octob er 2023 the refer ence inter glenroy will be clemens ing to: Non React roberto carlos. Not Available [facility] ([facility]) [address] [facility], [place], [address], 12/07/2023 20:09:55 12/05/1912/07/2023 CT NG M GENIT ALIUM RENO, URINE mycoplasma genitalium RENO Negati ve negati ve Not Available [facility] ([facility]) [address] [place], [address], 12/07/2023 20:09:56 12/05/1912/07/2023 CT NG M GENIT ALIUM RENO, URINE chlamydia trachomatis, RENO Negati ve negati ve Not Available [facility] ([facility]) [address] [place], [address], 12/07/2023 20:09:56 12/05/1912/07/2023 CT NG M GENIT ALIUM RENO, URINE neisseria gonorrhoeae, RENO Negati ve negati ve Not Available [facility] ([facility]) [address] [place], [address], 12/07/2023 20:09:56 12/05/1912/06/2023 TSH+F REE T4 TSH 4.820 uIU/m L 0.450- 4.500 above high normal Not Available [facility] ([facility]) [address] [place], [address], 12/07/2023 20:09:57 12/05/1912/06/2023 TSH+F REE T4 T4,free(dire ct) 1.43 NG/dL 0.82-1 .77 Not Available [facility] ([facility]) [address] [place], [address], 12/07/2023 20:09:57 12/05/1912/06/2023 COMP. METAB OLIC PANEL (14) glucose 72 mg/dL 70-99 Not Available [facility] ([facility]) [address] [place], [address], 12/07/2023 20:09:58 12/05/19 24 12/06/2023 COMP. METAB OLIC PANEL (14) BUN 13 mg/dL 6-20 Not Available [facility] ([facility]) [address] [facility], [place], [address], 12/07/2023 20:09:58 12/05/19 24 12/06/2023 COMP. METAB OLIC PANEL (14) creatinine 1.10 mg/dL 0.76-1 .27 Not Available [facility] ([facility]) [address] [facility], [place], [address], 12/07/2023 20:09:58 12/05/19 24 12/06/2023 COMP. METAB OLIC PANEL (14) eGFR 91 mL/mi n/1.7 3 >59 Not Available [facility] ([facility]) [address] [facility], [place], [address], 12/07/2023 20:09:58 12/05/19 24 12/06/2023 COMP. METAB OLIC PANEL (14) BUN/creatini ne ratio 12 9-20 Not Available [facility] ([facility]) [address] [facility], [place], [address], 12/07/2023 20:09:58 12/05/19 24 12/06/2023 COMP. METAB OLIC PANEL (14) sodium 141 mmol/ L 134-14 4 Not Available [facility] ([facility]) [address] [place], [address], 12/07/2023 20:09:58 12/05/19 24 12/06/2023 COMP. METAB OLIC PANEL (14) potassium 4.5 mmol/ L 3.5-5. 2 Not Available [facility] ([facility]) [address] [facility], [place], [address], 12/07/2023 20:09:58 12/05/19 24 12/06/2023 COMP. METAB OLIC PANEL (14) chloride 103 mmol/ L 96-106 Not Available [facility] ([facility]) [address] [facility] [place], [address], 12/07/2023 20:09:58 12/05/19 24 12/06/2023 COMP. METAB OLIC PANEL (14) carbon dioxide, total 24 mmol/ L 20-29 Not Available [facility] ([facility]) [address] [facility], [place], [address], 12/07/2023 20:09:58 12/05/19 24 12/06/2023 COMP. METAB OLIC PANEL (14) calcium 9.5 mg/dL 8.7-10 .2 Not Available [facility] ([facility]) [address] [facility], [place], [address], 12/07/2023 20:09:58 12/05/19 24 12/06/2023 COMP. METAB OLIC PANEL (14) protein, total 6.9 g/dL 6.0-8. 5 Not Available [facility] ([facility]) [address] [facility] [place], [address], 12/07/2023 20:09:58 12/05/19 24 12/06/2023 COMP. METAB OLIC PANEL (14) albumin 4.6 g/dL 4.1-5. 1 Not Available [facility] ([facility]) [address] [facility] [place], [address], 12/07/2023 20:09:58 12/05/19 24 12/06/2023 COMP. METAB OLIC PANEL (14) globulin, total 2.3 g/dL 1.5-4. 5 Not Available [facility] ([facility]) [address] [facility] [place], [address], 12/07/2023 20:09:58 12/05/19 24 12/06/2023 COMP. METAB OLIC PANEL (14) bilirubin, total 0.3 mg/dL 0.0-1. 2 Not Available [facility] ([facility]) [address] [facility], [place], [address], 12/07/2023 20:09:58 12/05/19 24 12/06/2023 COMP. METAB OLIC PANEL (14) alkaline phosphatase 77 IU/L 44-121 Not Available [facility] ([facility]) [address] [facility], [place], [address], 12/07/2023 20:09:58 12/05/19 24 12/06/2023 COMP. METAB OLIC PANEL (14) AST (SGOT) 9 IU/L 0-40 Not Available [facility] ([facility]) [address] [facility], [place], [address], 12/07/2023 20:09:58 12/05/19 24 12/06/2023 COMP. METAB OLIC PANEL (14) ALT (SGPT) 5 IU/L 0-44 Not Available [facility] ([facility]) [address] [facility], [place], [address], 12/07/2023 20:09:58 12/05/19 24 12/06/2023 VITAM IN B12 AND FOLAT E vitamin B12 597 pg/mL 232-12 45 Not Available [facility] ([facility]) [address] [facility], [place], [address], 12/07/2023 20:09:59 12/05/19 24 12/06/2023 VITAM IN B12 AND FOLAT E folate (folic acid), serum 7.7 NG/mL >3.0 A serum folat e amy ntrat ion of less than 3.1 ng/mL is consi dered to repre sent clini frandy defic iency . Not Available [facility] ([facility]) [address] [facility], [place], [address], 12/07/2023 20:09:59 12/05/19 24 12/06/2023 CBC WITH DIFFE RENTI AL/PL ATELE T WBC 3.6 x10e3 /uL 3.4-10 .8 Not Available [facility] ([facility]) [address] [facility], [place], [address], 12/07/2023 20:10:00 12/05/19 24 12/06/2023 CBC WITH DIFFE RENTI AL/PL ATELE T RBC 5.51 x10e6 /uL 4.14-5 .80 Polyc hroma edy prese nt Ovalo cytes prese nt. Not Available [facility] ([facility]) [address] [facility], [place], [address], 12/07/2023 20:10:00 12/05/1912/06/2023 CBC WITH DIFFE RENTI AL/PL ATELE T hemoglobin 14.5 g/dL 13.0-1 7.7 Not Available [facility] ([facility]) [address] [place], [address], 12/07/2023 20:10:00 12/05/19 24 12/06/2023 CBC WITH DIFFE RENTI AL/PL ATELE T hematocrit 46.6 % 37.5-5 1.0 Not Available [facility] ([facility]) [address] [facility], [place], [address], 12/07/2023 20:10:00 12/05/19 24 12/06/2023 CBC WITH DIFFE RENTI AL/PL ATELE T MCV 85 fL 79-97 Not Available [facility] ([facility]) [address] [place], [address], 12/07/2023 20:10:00 12/05/19 24 12/06/2023 CBC WITH DIFFE RENTI AL/PL ATELE T MCH 26.3 pg 26.6-3 3.0 below low normal Not Available [facility] ([facility]) [address] [facility], [place], [address], 12/07/2023 20:10:00 12/05/19 24 12/06/2023 CBC WITH DIFFE RENTI AL/PL ATELE T MCHC 31.1 g/dL 31.5-3 5.7 below low normal Not Available [facility] ([facility]) [address] [facility], [place], [address], 12/07/2023 20:10:00 12/05/19 24 12/06/2023 CBC WITH DIFFE RENTI AL/PL ATELE T RDW 12.6 % 11.6-1 5.4 Not Available [facility] ([facility]) [address] [facility], [place], [address], 12/07/2023 20:10:00 12/05/19 24 12/06/2023 CBC WITH DIFFE RENTI AL/PL ATELE T platelets 316 x10e3 /uL 150-45 0 Not Available [facility] ([facility]) [address] [facility], [place], [address], 12/07/2023 20:10:00 12/05/19 24 12/06/2023 CBC WITH DIFFE RENTI AL/PL ATELE T neutrophils 29 % notest ab. Not Available [facility] ([facility]) [address] [facility], [place], [address], 12/07/2023 20:10:00 12/05/19 24 12/06/2023 CBC WITH DIFFE RENTI AL/PL ATELE T lymphs 59 % notest ab. Lymph ocyte s appea r react roberto carlos. Not Available [facility] ([facility]) [address] [facility], [place], [address], 12/07/2023 20:10:00 12/05/19 24 12/06/2023 CBC WITH DIFFE RENTI AL/PL ATELE T monocytes 8 % notest ab. Not Available [facility] ([facility]) [address] [facility], [place], [address], 12/07/2023 20:10:00 12/05/19 24 12/06/2023 CBC WITH DIFFE RENTI AL/PL ATELE T eos 3 % notest ab. Not Available [facility] ([facility]) [address] [facility], [place], [address], 12/07/2023 20:10:00 12/05/19 24 12/06/2023 CBC WITH DIFFE RENTI AL/PL ATELE T basos 1 % notest ab. Not Available [facility] ([facility]) [address] [facility], [place], [address], 12/07/2023 20:10:00 12/05/19 24 12/06/2023 CBC WITH DIFFE RENTI AL/PL ATELE T neutrophils (absolute) 1.0 x10e3 /uL 1.4-7. 0 below low normal Not Available [facility] ([facility]) [address] [facility], [place], [address], 12/07/2023 20:10:00 12/05/19 24 12/06/2023 CBC WITH DIFFE RENTI AL/PL ATELE T lymphs (absolute) 2.1 x10e3 /uL 0.7-3. 1 Not Available [facility] ([facility]) [address] [facility], [place], [address], 12/07/2023 20:10:00 12/05/19 24 12/06/2023 CBC WITH DIFFE RENTI AL/PL ATELE T monocytes(ab solute) 0.3 x10e3 /uL 0.1-0. 9 Not Available [facility] ([facility]) [address] [facility], [place], [address], 12/07/2023 20:10:00 12/05/19 24 12/06/2023 CBC WITH DIFFE RENTI AL/PL ATELE T eos (absolute) 0.1 x10e3 /uL 0.0-0. 4 Not Available [facility] ([facility]) [address] [facility], [place], [address], 12/07/2023 20:10:00 12/05/19 24 12/06/2023 CBC WITH DIFFE RENTI AL/PL ATELE T baso (absolute) 0.0 x10e3 /uL 0.0-0. 2 Not Available [facility] Lab) [address] [facility], [place], [address], 12/07/2023 20:10:00 12/05/19 24 12/06/2023 CBC WITH DIFFE RENTI AL/PL ATELE T immature granulocytes 0 % notest ab. Not Available [facility] ([facility]) [address] [facility], [place], [address], 12/07/2023 20:10:00 12/05/19 24 12/06/2023 CBC WITH DIFFE RENTI AL/PL ATELE T immature grans (abs) 0.0 x10e3 /uL 0.0-0. 1 Not Available [facility] ([facility]) [address] [place], [address], 12/07/2023 20:10:00 12/05/19 24 12/06/2023 CBC WITH DIFFE RENTI AL/PL ATELE T hematology comments: NOTE: Verif ied by al baez nMellisa Not Available [facility] ([facility]) [address] [place], [address], 12/07/2023 20:10:00 12/05/19 24 12/06/2023 RPR RPR NON REACTI VE nonrea ctive Not Available [facility] ([facility]) [address] [place], [address], 12/07/2023 20:10:02 12/05/19 24 12/06/2023 TRIIO DOTHY TAHIRA E (T3), FREE triiodothyro nine (T3), free 3.7 pg/mL 2.0-4. 4 Not Available [facility] ([facility]) [address] [place], [address], 12/07/2023 20:10:03 03/20/19 25 03/21/2024 TSH+F REE T4 TSH 1.530 uIU/m L 0.450- 4.500 Not Available [facility] ([facility]) [address] [place], [address], 03/21/2024 13:14:25 03/20/19 25 03/21/2024 TSH+F REE T4 T4,free(dire ct) 1.16 NG/dL 0.82-1 .77 Not Available [facility] ([facility]) [address] [place], [address], 03/21/2024 13:14:25 03/20/19 25 03/21/2024 CBC WITH DIFFE RENTI AL/PL ATELE T WBC 2.7 x10e3 /uL 3.4-10 .8 below low normal Not Available [facility] ([facility]) [address] [place], [address], 03/21/2024 13:14:26 03/20/19 25 03/21/2024 CBC WITH DIFFE RENTI AL/PL ATELE T RBC 5.29 x10e6 /uL 4.14-5 .80 Not Available [facility] ([facility]) [address] [place], [address], 03/21/2024 13:14:26 03/20/1903/21/2024 CBC WITH DIFFE RENTI AL/PL ATELE T hemoglobin 13.9 g/dL 13.0-1 7.7 Not Available [facility] ([facility]) [address] [place], [address], 03/21/2024 13:14:26 03/20/19 25 03/21/2024 CBC WITH DIFFE RENTI AL/PL ATELE T hematocrit 43.7 % 37.5-5 1.0 Not Available [facility] ([facility]) [address] [place], [address], 03/21/2024 13:14:26 03/20/19 25 03/21/2024 CBC WITH DIFFE RENTI AL/PL ATELE T MCV 83 fL 79-97 Not Available [facility] ([facility]) [address] [facility], [place], [address], 03/21/2024 13:14:26 03/20/19 25 03/21/2024 CBC WITH DIFFE RENTI AL/PL ATELE T MCH 26.3 pg 26.6-3 3.0 below low normal Not Available [facility] ([facility]) [address] [facility], [place], [address], 03/21/2024 13:14:26 03/20/19 25 03/21/2024 CBC WITH DIFFE RENTI AL/PL ATELE T MCHC 31.8 g/dL 31.5-3 5.7 Not Available [facility] ([facility]) [address] [facility], [place], [address], 03/21/2024 13:14:26 03/20/19 25 03/21/2024 CBC WITH DIFFE RENTI AL/PL ATELE T RDW 12.6 % 11.6-1 5.4 Not Available [facility] ([facility]) [address] [facility], [place], [address], 03/21/2024 13:14:26 03/20/1903/21/2024 CBC WITH DIFFE RENTI AL/PL ATELE T platelets 295 x10e3 /uL 150-45 0 Not Available [facility] ([facility]) [address] [facility], [place], [address], 03/21/2024 13:14:26 03/20/19 25 03/21/2024 CBC WITH DIFFE RENTI AL/PL ATELE T neutrophils 39 % notest ab. Not Available [facility] ([facility]) [address] [facility], [place], [address], 03/21/2024 13:14:26 03/20/19 25 03/21/2024 CBC WITH DIFFE RENTI AL/PL ATELE T lymphs 48 % notest ab. Not Available [facility] ([facility]) [address] [facility], [place], [address], 03/21/2024 13:14:26 03/20/19 25 03/21/2024 CBC WITH DIFFE RENTI AL/PL ATELE T monocytes 10 % notest ab. Not Available [facility] ([facility]) [address] [facility], [place], [address], 03/21/2024 13:14:26 03/20/19 25 03/21/2024 CBC WITH DIFFE RENTI AL/PL ATELE T eos 2 % notest ab. Not Available [facility] ([facility]) [address] [facility], [place], [address], 03/21/2024 13:14:26 03/20/19 25 03/21/2024 CBC WITH DIFFE RENTI AL/PL ATELE T basos 1 % notest ab. Not Available [facility]) [address] [facility], [place], [address], 03/21/2024 13:14:26 03/20/19 25 03/21/2024 CBC WITH DIFFE RENTI AL/PL ATELE T neutrophils (absolute) 1.0 x10e3 /uL 1.4-7. 0 below low normal Not Available [facility]) [address] [facility], [place], [address], 03/21/2024 13:14:26 03/20/19 25 03/21/2024 CBC WITH DIFFE RENTI AL/PL ATELE T lymphs (absolute) 1.3 x10e3 /uL 0.7-3. 1 Not Available [facility]) [address] [facility], [place], [address], 03/21/2024 13:14:26 03/20/19 25 03/21/2024 CBC WITH DIFFE RENTI AL/PL ATELE T monocytes(ab solute) 0.3 x10e3 /uL 0.1-0. 9 Not Available [facility]) [address] [facility], [place], [address], 03/21/2024 13:14:26 03/20/19 25 03/21/2024 CBC WITH DIFFE RENTI AL/PL ATELE T eos (absolute) 0.1 x10e3 /uL 0.0-0. 4 Not Available [facility] ([facility]) [address] [place], [address], 03/21/2024 13:14:26 03/20/19 25 03/21/2024 CBC WITH DIFFE RENTI AL/PL ATELE T baso (absolute) 0.0 x10e3 /uL 0.0-0. 2 Not Available [facility] ([facility]) [address] [facility], [place], [address], 03/21/2024 13:14:26 03/20/19 25 03/21/2024 CBC WITH DIFFE RENTI AL/PL ATELE T immature granulocytes 0 % notest ab. Not Available [facility] ([facility]) [address] [place], [address], 03/21/2024 13:14:26 03/20/19 25 03/21/2024 CBC WITH DIFFE RENTI AL/PL ATELE T immature grans (abs) 0.0 x10e3 /uL 0.0-0. 1 Not Available [facility] ([facility]) [address] [place], [address], 03/21/2024 13:14:26 03/20/19 25 03/21/2024 CBC WITH DIFFE RENTI AL/PL ATELE T hematology comments: NOTE: Verif ied by al butleri sasha n. Not Available [facility] ([facility]) [address] [place], [address], 03/21/2024 13:14:26 03/20/19 25 03/21/2024 TRIIO DOTHY TAHIRA E (T3), FREE triiodothyro nine (T3), free 2.8 pg/mL 2.0-4. 4 Not Available [facility] ([facility]) [address] [facility], [place], [address], 03/21/2024 13:14:27 03/20/19 25 03/22/2024 HIV-1 /HIV- 2 QUALI TATIV E RNA HIV-1 RNA NON REACTI VE nonrea ctive Not Available [facility] ([facility]) [address] [facility], [place], [address], 03/22/2024 19:08:26 03/20/19 25 03/22/2024 HIV-1 /HIV- 2 QUALI TATIV E RNA HIV-2 RNA NON REACTI VE nonrea ctive Not Available [facility] ([facility]) [address] [facility], [place], [address], 03/22/2024 19:08:26 Result Notes None recorded. Problems Name Problem SNOMED Code Status Onset Date Resolution Date Notes Provider Name and Address Organization Details Recorded Time Anemia 887267185 Active 2023 ARTURO [place], [place] - [facility] 4 16:06:11 Exposure to blood and/or body fluid Active 2023 ART[place] - [facility] 4 16:06:12 Fatigue 04618630 Active 2023 ARTUR[place] - [facility] 4 16:09:20 Gastroesophage al reflux disease without esophagitis 087828362 Active 2024 ARTUR[place] - [facility] 5 16:37:16 Leukopenia 17121996 Active 2024 Lora Martinez MD Attn: Paras keen,[address] [place], [address], [facility] - [facility] 22:13:35 Problem Notes None recorded. Procedures Surgical History Date Name Laterality Status Provider Name and Address Organization Details Recorded Time endoscopy completed Shonna Price [place] - [facility] 05/15/2023 17:06:42 Imaging Results None recorded. Procedure Notes None recorded. Medical Equipment None Reported. Allergies No known drug allergies Medications Name Sig Start Date Stop Date Status Note LastModified by Organization Details LastModified Time amoxicillin 500 mg capsule TAKE 1 CAPSULE BY MOUTH THREE TIMES DAILY UNTIL ALL TAKEN active Not Available Not Available No t Available BD Luer-Ray Syringe 3 mL 25 x 1 1/2 USE TO ADMINISTE R BEFORE-12 INJECTION INTRAMUSC ULARLY ON A MONTHLY BASIS active Not Available Not Available No t Available acetaminoph en 120 mg-codeine 12 mg/5 mL oral solution TAKE 5 ML BY MOUTH EVERY 4 TO 6 HOURS NEEDED active Not Available Not Available No t Available hydrocodone 5 mg-acetamin ophen 325 mg tablet active Not Available Not Available No t Available sucralfate 100 mg/mL oral suspension 05/14 completed Not Available Not Available Not Available sucralfate 1 gram tablet TAKE 1 TABLET BY MOUTH THREE TIMES DAILY BEFORE MEALS 05/14 completed Not Available Not Available Not Available Debrox 6.5 % ear drops INSTILL 5 DROPS INTO AFFECTED EAR(S) BY OTIC ROUTE 2 TIMES PER DAY x 5days 12/04 completed Not Available Not Available Not Available cyanocobala min (vit B-12) 1,000 mcg tablet TAKE 1 TABLET BY MOUTH DAILY active Not Available Not Available No t Available penicillin V potassium 500 mg tablet TAKE 1 TABLET BY MOUTH FOUR TIMES DAILY FOR 10 DAYS 04/16 completed Not Available Not Available Not Available pantoprazol e 40 mg tablet,hector yed release TAKE 1 TABLET BY MOUTH DAILY 12/04 completed Not Available Not Available Not Available cyanocobala min (vit B-12) 1,000 mcg/mL injection solution active Not Available Not Available Not Available lansoprazol e 30 mg capsule,del ayed release Take 1 capsule every day by oral route. 2024 active Not Available Not Available Not Avai lable omeprazole 20 mg capsule,del ayed release TAKE 1 CAPSULE BY MOUTH EVERY DAY active Not Available Not Available No t Available naproxen 500 mg tablet TAKE 1 TABLET BY MOUTH TWICE DAILY WITH FOOD active Not Available Not Available No t Available lansoprazol e 30 mg delayed release,dis integrating tablet DISSOLVE ONE TABLET BY MOUTH DAILY active Not Available Not Available No t Available omeprazole 20 mg-sodium bicarbonate 1,680 mg oral packet DISSOLVE 1 PACKET IN LIQUID AND DRINK DAILY BEFORE A MEAL 12/18 completed Not Available Not Available Not Available Vitals Date Recorded Body weight Body mass index (BMI) Body height Heart rate Oxygen saturation Oxygen saturation in Arterial blood by Pulse oximetry Systolic blood pressure Diastolic blood pressure Provider Name and Address Organization Details Last Updated DateTime 4 94778.9 3 g 21.4 kg/m2 187.96 cm 72 /min 98 % 98 % 120 mm[Hg] 62 mm[Hg] Shonna Price MA [facility] 4 17:11:43 Date Recorded Body height Body mass index (BMI) Body weight Respiratory rate Heart rate Oxygen saturation Oxygen saturation in Arterial blood by Pulse oximetry Systolic blood pressure Diastolic blood pressure Provider Name and Address Organization Details Last Updated DateTime 4 187.96 cm 21.2 kg/m2 36260.7 4 g 18 /min 78 /min 97 % 97 % 128 mm[Hg] 80 mm[Hg] Krystal Stewart MA [facility] 4 15:04:21 Date Recorded Body height Body mass index (BMI) Body weight Heart rate Oxygen saturation Oxygen saturation in Arterial blood by Pulse oximetry Systolic blood pressure Diastolic blood pressure Provider Name and Address Organization Details Last Updated DateTime 5 187.96 cm 20.9 kg/m2 24907.8 4 g 80 /min 98 % 98 % 116 mm[Hg] 68 mm[Hg] Meli Bradshaw MA [facility] 5 16:23:30 Date Recorded Body height Body mass index (BMI) Body weight Heart rate Oxygen saturation Oxygen saturation in Arterial blood by Pulse oximetry Systolic blood pressure Diastolic blood pressure Provider Name and Address Organization Details Last Updated DateTime 5 187.96 cm 20.4 kg/m2 49982.4 7 g 74 /min 98 % 98 % 132 mm[Hg] 70 mm[Hg] Meli Bradshaw MA [facility] 15:56:11 Social History Question Answer Notes LastModified by Organizat ion Details LastModified Time Tobacco Smoking Status Never Smoker ARTURO [place], [place] - [facility] 05/15/2023 17:05:04 What Is Your Level Of Alcohol Consumption? None Information not available 05/15/2023 Are You Blind Or Do You Have Difficulty Seeing? No Information not available 05/15/2023 What Is Your Level Of Caffeine Consumption? Occasional Information not available 05/15/2023 Are You Currently Employed? Yes Information not available 05/15/2023 Are You Deaf Or Do You Have Serious Difficulty Hearing? No Information not available 05/15/2023 What Type Of Diet Are You Following? REGULAR Information not available 05/15/2023 What Is The Highest Grade Or Level Of School You Have Completed Or The Highest Degree You Have Received? [id number] Information not available 05/15/2023 What Is Your Occupation? [employer] Information not available 05/15/2023 Are There Any Guns Present In Your Home? No Information not available 05/15/2023 What Was The Date Of Your Most Recent Tobacco Screening? 04/16/2024 [email or web address] Information not available 04/16/2024 What Is Your Relationship Status? Single Information not available 05/15/2023 Do You Use Your Seat Belt Or Car Seat Routinely? Yes Information not available 05/15/2023 Do You Have Smoke And Carbon Monoxide Detectors In Your Home? Yes Information not available 05/15/2023 Do You Feel Stressed (tense, Restless, Nervous, Or Anxious, Or Unable To Sleep At Night)? [id number] Information not available 05/15/2023 Do You Use Any Illicit Or Recreational Drugs? No Information not available 05/15/2023 Do You Use Sunscreen Routinely? No Information not available 05/15/2023 Has Tobacco Cessation Counseling Been Provided? No Information not available 05/15/2023 Do You Or Have You Ever Used Any Other Forms Of Tobacco Or Nicotine? No Information not available 05/15/2023 Sex: Male Functional Status Question Answer Note LastModified by Organization D etails LastModified Time Are you able to care for yourself? Yes Information not available 05/15/2023 What is your exercise level? Moderate Information not available 05/15/2023 Mental Status None recorded. Family History Nothing Reported. Medical History Condition Response Coronary Artery Disease N Other N High Blood Pressure N Atrial Fibrillation N Kidney or Bladder Problems N Thyroid Problems N GI Problems Y Depression N COPD N Blood Clots N Skin Problems N Anemia N Heart Attack (CT) N Anxiety Disorder N Diabetes N Muscle, Joint, or Bone Problems N Seizures/Epilepsy N Acid Reflux (GERD) Y Cancer N Stroke N Asthma Y Allergies N High Cholesterol N Hepatitis N Liver Disease N Headaches Y Heart Failure N Osteoporosis N Past Encounters Encounter ID Performer Location Encounter Start Date Encounter Closed Date Diagnosis/Indication Diagnosis SNOMED-CT Code Diagnosis ICD10 Code Diagnosis Note [id number] Lora Martinez MD [facility] (Adult Med) [address] [place] [address] 0 05/15/2023 16:18:50 05/15/2023 17:41:40 Impacted cerumen of bilateral ears 5601957695 319932 H61.23 Gastroesop hageal reflux disease without esophagitis 153338166 K21.9 Leukopenia 69732480 D72. 834 [id number] Lora Martinez MD [facility] (Adult Med) [address] [place] [address] 0 12/05/2023 14:52:53 12/05/2023 16:02:46 Anemia 848239947 D64.9 Exposure t o blood and/or body fluid 342805269 Z77.21 Fatigue 08610921 R53.83 Gastroesop hageal reflux disease without esophagitis 745381098 K21.9 [id number] MD [facility] (Adult Med) [address] [place] [address] 0 03/20/2024 16:11:55 03/20/2024 17:10:05 Body mass index 20-24 - normal 830946451 Z68.20 Exposure t o blood and/or body fluid 589854344 Z77.21 Subclinica l hypothyroidism 42009834 E02 Anemia 597856292 D64.9 Gastroesop hageal reflux disease 555931571 K21.9 Serum rolando min B12 below reference range 941137196 R79.89 [id number] Lora Martinez MD [facility] (Adult [facility]) [address] [place] [address] 04/16/2024 15:38:27 04/16/2024 16:47:05 Body mass index 20-24 - normal 966788122 Z68.20 Gastroesop hageal reflux disease without esophagitis 449136138 K21.9 Anemia 062685353 D64.9 Leukopenia 14267292 D72. 819 Health Concerns Section Related Observation LastModified by Organization Detai ls LastModified Time None Recorded Concern Status LastModified by Organization Details LastModified Time None Recorded Advance Directives Directive None Recorded Payers Encounter Date Sequence Insurance Name Policy Number Policy Brambila Covered Member ID Brambila Member ID Guarantor Name 05/15/2023 1 [employer] (PPO) [id number] Law Garcia [id number] Law Garcia 12/05/2023 1 *SELF PAY* Arturo Garcia 03/20/2024 1 [employer] - EXCHANGE PLAN (HMO) [id number] Law Garcia [id number] Law Garcia 03/20/2024 2 [place] [facility] Law Garcia [id number] Law Garcia 04/16/2024 1 [employer] - EXCHANGE PLAN (HMO) ILOLIVIA Law Garcia [id number] Law Garcia 04/16/2024 2 [place] [facility] Law Garcia [id number] Law Garcia Notes Date Note Type Note Provider Name and Address Organization Details Recorded Time 05/15/2023 text/html Omeprazole sodiu m bicarb feeling better dietary strategies for the management. 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 Mildly elevat ed TSH consistent with subclinical hypothyroidism he has not had any fatigue he has not had any constipation or other signs or symptoms of hypothyroidism at all. 2. Anemia needs to have CBC checked again. GERD type symptomatology pantoprazole helped a little bit he prefers to take some omeprazole. He has had an upper endoscopy before and we need to get the results of that. Lora Martinez MD Attn: Accounting[address] [facility], [place], [address], [facility] - [facility] 03/20/2024 22:01:13 04/16/2024 text/html still has that i s sensation that at time food gets stuck he has seen GI. He has seen Heme-Onc they detected leukopenia the workup so far negative but he was getting monthly B12 injections but he had to quit because of the co-pay Lora Martinez MD Attn: Accounting[address] [facility], [place], [address], [facility] - SI 04/16/2024 22:13:58
--- OUTSIDE RECORDS SUMMARY | 2024-05-01 11:43 | XMS_ITS | Data Portability ---
Author Organization [place] - [facility] [employer], Main Office Address [address] [place] [id number] Assessment Encounter Date Assessment Date Assessment LastModified by Organization Details LastModified Time 05/25/2022 05/25/2022 Blood work chest x-ray omeprazole follow-up 1 month [email or web address] Not available 06/13/2022 22:23:26 06/22/2022 06/22/2022 Continue PPI see me in 6-8 weeks Not available 06/22/2022 21:52:39 07/27/2022 07/27/2022 Urology Recheck CBC Continue PPI See me 3 months [email or web address] Not available 07/30/2022 14:56:37 10/26/2022 10/26/2022 Continue current therapy see me back in 6 months and he has a follow-up with Hematology [email or web address] Not available 10/26/2022 21:00:44 Plan of Treatment Reminders Order Date Submit Date Provider Last Modified By Organization Details Last Modified Time Details Appointments New Patient 15 2024 02:15P Wendy Kerns MD Not available Not available Not available Lab CBC w/ auto diff [address] [facility] (Lab), [address] [place], [address], 08/03/2022 17:53:39 lipid panel, serum 2022 023 [facility], [address] [place], [address], 05/25/2022 19:07:59 CMP, serum or plasma 2022 023 [facility], [address] [place], [address], 05/25/2022 19:07:56 CBC w/ auto diff 2022 023 [facility], [address] [place], [address], 05/25/2022 18:14:18 TSH + free T4, serum 2022 023 [facility], [address] [place], [address], 06/01/2022 09:40:56 T3, free, serum or plasma 2022 023 [facility], [address] [place], [address], 05/25/2022 19:28:28 Referral urologist referral 2022 023 eloise Rowell MD, [address] [facility], [facility] [address], [place], [address], 12/05/2022 09:00:19 Procedures None recorded. Surgeries None recorded. Imaging XR, chest 2022 023 [facility] ([facility]), [address] [place], [address], 06/08/2022 09:03:44 Medication Orders omeprazol e 20 mg capsule,d elayed release 2022 023 [facility] #[id number], [address], [place], [place], [id number], 10/26/2022 16:13:06 omeprazol e 20 mg capsule,d elayed release 2022 023 [facility] #[id number], [address], [place], [place], [id number], 07/27/2022 16:55:15 omeprazol e 20 mg capsule,d elayed release 2022 023 [email or web address] [facility] #[id number], [address], [place], [place], [id number], 05/25/2022 17:20:04 Patient TargetsNo targets recorded. Patient InstructionsNo instructions recorded. Reason for Referral Urologist Referral for Lesio n of penis Referring Physician: Joe Martinez, Internal Medicine, Encounter Date: 07/27/2022 Results Created Date Observation Date Name Description Value Unit Range Abnormal Flag Note LastModifiedBy Organization Detail LastModifiedTime 05/26/19 23 05/25/2022 CBC/C OMPLE TE BLD COUNT W/DIF F white blood cells 3.8 x10'3 /uL 4.2-10 .8 low Not Available [facility] (Lab) [address] [place], [address], 05/25/2022 18:14:18 05/26/19 23 05/25/2022 CBC/C OMPLE TE BLD COUNT W/DIF F red blood cells 5.74 x10'6 /uL 4.10-5 .80 Not Available [facility] (Lab) [address] [place], [address], 05/25/2022 18:14:18 05/26/19 23 05/25/2022 CBC/C OMPLE TE BLD COUNT W/DIF F hemoglobin 15.1 g/dL 13.2-1 7.0 Not Available [facility] (Lab) [address] [place], [address], 05/25/2022 18:14:18 05/26/19 23 05/25/2022 CBC/C OMPLE TE BLD COUNT W/DIF F hematocrit 49.1 % 39.3-5 0.0 Not Available [facility] (Lab) [address] [place], [address], 05/25/2022 18:14:18 05/26/19 23 05/25/2022 CBC/C OMPLE TE BLD COUNT W/DIF F mean red cell volume 85.5 fL 80.0-9 7.0 Not Available [facility] (Lab) [address] [place], [address], 05/25/2022 18:14:18 05/26/19 23 05/25/2022 CBC/C OMPLE TE BLD COUNT W/DIF F mean red cell hemoglobin 26.3 pg 27.0-3 3.0 low Not Available [facility] (Lab) [address] [place], [address], 05/25/2022 18:14:18 05/26/19 23 05/25/2022 CBC/C OMPLE TE BLD COUNT W/DIF F mean RBC HGB concentratio n 30.8 g/dL 31.0-3 6.0 low Not Available [facility] (Lab) [address] [place], [address], 05/25/2022 18:14:18 05/26/19 23 05/25/2022 CBC/C OMPLE TE BLD COUNT W/DIF F red cell distribution width 12.9 % 11.8-1 5.5 Not Available [facility] (Lab) [address] [place], [address], 05/25/2022 18:14:18 05/26/19 23 05/25/2022 CBC/C OMPLE TE BLD COUNT W/DIF F platelets 331 x10'3 /uL 150-40 0 Not Available [facility] (Lab) [address] [place], [address], 05/25/2022 18:14:18 05/26/19 23 05/25/2022 CBC/C OMPLE TE BLD COUNT W/DIF F mean platelet volume 10.2 fL 9.0-12 .4 Not Available [facility] (Lab) [address] [place], [address], 05/25/2022 18:14:18 05/26/19 23 05/25/2022 CBC/C OMPLE TE BLD COUNT W/DIF F neutrophils 36.5 % 39.0-7 2.0 low Not Available [facility] (Lab) [address] [place], [address], 05/25/2022 18:14:18 05/26/19 23 05/25/2022 CBC/C OMPLE TE BLD COUNT W/DIF F lymphocytes 52.8 % 16.0-4 7.0 high Not Available [facility] (Lab) [address] [place], [address], 05/25/2022 18:14:18 05/26/19 23 05/25/2022 CBC/C OMPLE TE BLD COUNT W/DIF F monocytes 8.8 % 5.0-12 .0 Not Available [facility] (Lab) [address] [place], [address], 05/25/2022 18:14:18 05/26/19 23 05/25/2022 CBC/C OMPLE TE BLD COUNT W/DIF F eosinophils 1.6 % 1.0-7. 0 Not Available [facility] (Lab) [address] [place], [address], 05/25/2022 18:14:18 05/26/19 23 05/25/2022 CBC/C OMPLE TE BLD COUNT W/DIF F basophils 0.3 % 0.0-2. 0 Not Available [facility] (Lab) [address] [place], [address], 05/25/2022 18:14:18 05/26/19 23 05/25/2022 CBC/C OMPLE TE BLD COUNT W/DIF F immature granulocytes 0.0 % 0.00-0 .50 Not Available [facility] (Lab) [address] [place], [address], 05/25/2022 18:14:18 05/26/19 23 05/25/2022 CBC/C OMPLE TE BLD COUNT W/DIF F neutrophils, absolute count 1.37 x10'3 /uL 1.5-8. 0 low Not Available [facility] (Lab) [address] [place], [address], 05/25/2022 18:14:18 05/26/19 23 05/25/2022 CBC/C OMPLE TE BLD COUNT W/DIF F lymphocytes, absolute count 1.98 x10'3 /uL 1.07-3 .43 Not Available [facility] (Lab) [address] [place], [address], 05/25/2022 18:14:18 05/26/19 23 05/25/2022 CBC/C OMPLE TE BLD COUNT W/DIF F monocytes, absolute count 0.33 x10'3 /uL 0.29-0 .99 Not Available [facility] (Lab) [address] [place], [address], 05/25/2022 18:14:18 05/26/19 23 05/25/2022 CBC/C OMPLE TE BLD COUNT W/DIF F eosinophils, absolute count 0.06 x10'3 /uL 0.02-0 .53 Not Available [facility] (Lab) [address] [place], [address], 05/25/2022 18:14:18 05/26/19 23 05/25/2022 CBC/C OMPLE TE BLD COUNT W/DIF F basophils, absolute count 0.01 x10'3 /uL 0.01-0 .08 Not Available [facility] (Lab) [address] [place], [address], 05/25/2022 18:14:18 05/26/19 23 05/25/2022 CBC/C OMPLE TE BLD COUNT W/DIF F immature granulocytes ,absolute 0.00 x10'3 /uL 0.00-0 .05 Not Available [facility] (Lab) [address] [place], [address], 05/25/2022 18:14:18 05/26/19 23 05/25/2022 CBC/C OMPLE TE BLD COUNT W/DIF F nucleated red blood cells 0.0 % -[address] [facility] (Lab) [address] [place], [address], 05/25/2022 18:14:18 05/26/19 23 05/25/2022 CBC/C OMPLE TE BLD COUNT W/DIF F NRBC# 0.00 x10'3 /uL Not Available [facility] (Lab) [address] [place], [address], 05/25/2022 18:14:18 05/26/19 23 05/25/2022 COMPR EHENS ROBERTO CARLOS METAB OLIC PANEL sodium 139 mmol/ L 137-14 5 Not Available [facility] (Lab) [address] [place], [address], 05/25/2022 19:07:56 05/26/19 23 05/25/2022 COMPR EHENS ROBERTO CARLOS METAB OLIC PANEL potassium 4.7 mmol/ L 3.5-5. 1 Not Available [facility] (Lab) [address] [place], [address], 05/25/2022 19:07:56 05/26/19 23 05/25/2022 COMPR EHENS ROBERTO CARLOS METAB OLIC PANEL chloride 103 mmol/ L 98-107 Not Available [facility] (Lab) [address] [place], [address], 05/25/2022 19:07:56 05/26/19 23 05/25/2022 COMPR EHENS ROBERTO CARLOS METAB OLIC PANEL carbon dioxide 26 mmol/ L 22-30 Not Available [facility] (Lab) [address] [place], [address], 05/25/2022 19:07:56 05/26/19 23 05/25/2022 COMPR EHENS ROBERTO CARLOS METAB OLIC PANEL anion gap 14.7 mmol/ L 14-22 Not Available [facility] (Lab) [address] [place], [address], 05/25/2022 19:07:56 05/26/19 23 05/25/2022 COMPR EHENS ROBERTO CARLOS METAB OLIC PANEL glucose 88 mg/dL 70-99 Not Available [facility] (Lab) [address] [place], [address], 05/25/2022 19:07:56 05/26/19 23 05/25/2022 COMPR EHENS ROBERTO CARLOS METAB OLIC PANEL BUN 17 mg/dL 8-19 Not Available [facility] (Lab) [address] [place], [address], 05/25/2022 19:07:56 05/26/19 23 05/25/2022 COMPR EHENS ROBERTO CARLOS METAB OLIC PANEL creatinine 0.95 mg/dL 0.66-1 .25 Not Available [facility] (Lab) [address] [place], [address], 05/25/2022 19:07:56 05/26/19 23 05/25/2022 COMPR EHENS ROBERTO CARLOS METAB OLIC PANEL GFR >60 Refer ence Range : Douglas ge GFR Healt hy Adult : >60 mL/mi n/1.7 3 m2 Chron ic Kidne y Disea se: 15-60 mL/mi n/1.7 3 m2 Kidne y Failu re: <15/m L/min /1.73 m2 www.n iddk. nih.g ov The MDRD study equat ion has not been valid ated in child sami <18 years of age; pregn ant women ; the elder ly >85 years of age; or in some racia l or ethni c subgr oups, such as Hispa nics. Outsi de the valid ated aaron eters , estim ated GFR is less accur ate, requi ring clini frandy judgm ent on a case- by-ca se basis . Clini frandy inter preta tion for other races and ages must be made by the clini nick. The MDRD study equat ion has not been valid ated for the evalu ation of serum creat inine relat ed to nutri omari l statu s or medic ation usage . For perso ns <18 years of age, a pedia tric GFR calcu lator is avail able on the [facility] websi te: https ://arlyn w.demetrius matiasy.o rg/pr ofess ional s/kdo qi/gf r_cal culat or Not Available [facility] (Lab) [address] [place], [address], 05/25/2022 19:07:56 05/26/19 23 05/25/2022 COMPR EHENS ROBERTO CARLOS METAB OLIC PANEL alkaline phosphatase 59 U/L 38-126 Not Available [facility] (Lab) [address] [place], [address], 05/25/2022 19:07:56 05/26/19 23 05/25/2022 COMPR EHENS ROBERTO CARLOS METAB OLIC PANEL alanine aminotransfe rase 16 U/L 0-[address] [facility] (Lab) [address] [place], [address], 05/25/2022 19:07:56 05/26/19 23 05/25/2022 COMPR EHENS ROBERTO CARLOS METAB OLIC PANEL aspartate aminotransfe rase 24 U/L 15-[address] [facility] (Lab) [address] [place], [address], 05/25/2022 19:07:56 05/26/19 23 05/25/2022 COMPR EHENS ROBERT OCARLOS METAB OLIC PANEL bilirubin, total 0.90 mg/dL 0.20-1 .30 Not Available [facility] (Lab) [address] [place], [address], 05/25/2022 19:07:56 05/26/19 23 05/25/2022 COMPR EHENS ROBERTO CARLOS METAB OLIC PANEL calcium 9.8 mg/dL 8.4-10 .2 Not Available [facility] (Lab) [address] [place], [address], 05/25/2022 19:07:56 05/26/19 23 05/25/2022 COMPR EHENS ROBERTO CARLOS METAB OLIC PANEL total protein 7.9 g/dL 6.3-8. 2 Not Available [facility] (Lab) [address] [place], [address], 05/25/2022 19:07:56 05/26/19 23 05/25/2022 COMPR EHENS ROBERTO CARLOS METAB OLIC PANEL albumin 4.8 g/dL 3.4-5. 0 Not Available [facility] (Lab) [address] [place], [address], 05/25/2022 19:07:56 05/26/19 23 05/25/2022 COMPR EHENS ROBERTO CARLOS METAB OLIC PANEL globulin 3.1 g/dL 2.6-4. 2 Not Available [facility] (Lab) [address] [place], [address], 05/25/2022 19:07:56 05/26/19 23 05/25/2022 COMPR EHENS ROBERTO CARLOS METAB OLIC PANEL A/G ratio 1.5 ratio 1.0-2. 0 Not Available [facility] (Lab) [address] [place], [address], 05/25/2022 19:07:56 05/26/19 23 05/25/2022 LIPID PANEL cholesterol 176 mg/dL 140-19 9 NIH YOVANNY NSUS RECOM MENDA TION FOR CONNIE STERO L: ADULT CHILD LOW RISK: <200 <170 BORDE RLINE : <200- 239 ----- HIGH RISK: >240 >200 Not Available [facility] (Lab) [address] [place], [address], 05/25/2022 19:07:59 05/26/19 23 05/25/2022 LIPID PANEL triglyceride s 39 mg/dL 0-150 NIH YOVANNY NSUS REPOR T RECOM MENDA TION FOR TRIGL YCERI JEFF: ADULT CHILD LOW RISK: <150 ----- BODER LINE: 150-1 99 ----- HIGH RISK: >200 ----- Not Available [facility] (Lab) [address] [place], [address], 05/25/2022 19:07:59 05/26/19 23 05/25/2022 LIPID PANEL HDL cholesterol 68 mg/dL 40- Not Available [facility] (Lab) [address] [place], [address], 05/25/2022 19:07:59 05/26/19 23 05/25/2022 LIPID PANEL LDL cholesterol, calculated 100 mg/dL 0-130 NIH YOVANNY NSUS REPOR T RECOM MENDA TIONS FOR LDL: ADULT CHILD LOW RISK <130 <110 (OPTI MAL LDL) <100 ----- BORDE RLINE : 130-1 59 ----- HIGH RISK: >160 >130 A TRIGL YCERI DE RESUL T >400 INVAL IDATE S THE CALCU LATIO N FOR LDL FRACT IONAT ION - THE LDL RESUL T WILL NOT BE REPOR JUAN ANTONIO. Not Available [facility] (Lab) [address] [place], [address], 05/25/2022 19:07:59 05/26/19 23 05/25/2022 T4 FREE free T4 0.81 NG/dL 0.78-2 .19 Not Available [facility] (Lab) [address] [place], [address], 05/25/2022 19:28:25 05/26/19 23 05/25/2022 T3 FREE free T3 3.3 pg/mL 2.77-5 .27 Not Available [facility] (Lab) [address] [place], [address], 05/25/2022 19:28:28 05/26/19 23 05/25/2022 TSH thyroid-stim ulating hormone 1.380 uIU/m L 0.465- 4.680 Not Available [facility] (Lab) [address] [place], [address], 05/25/2022 19:38:42 08/04/19 23 08/03/2022 CBC/C OMPLE TE BLD COUNT W/DIF F white blood cells 3.0 x10'3 /uL 4.2-10 .8 low Not Available [facility] (Lab) [address] [place], [address], 08/03/2022 17:53:39 08/04/19 23 08/03/2022 CBC/C OMPLE TE BLD COUNT W/DIF F red blood cells 5.12 x10'6 /uL 4.10-5 .80 Not Available [facility] (Lab) [address] [place], [address], 08/03/2022 17:53:39 08/04/19 23 08/03/2022 CBC/C OMPLE TE BLD COUNT W/DIF F hemoglobin 13.5 g/dL 13.2-1 7.0 Not Available [facility] (Lab) [address] [place], [address], 08/03/2022 17:53:39 08/04/19 23 08/03/2022 CBC/C OMPLE TE BLD COUNT W/DIF F hematocrit 44.1 % 39.3-5 0.0 Not Available [facility] (Lab) [address] [place], [address], 08/03/2022 17:53:39 08/04/19 23 08/03/2022 CBC/C OMPLE TE BLD COUNT W/DIF F mean red cell volume 86.1 fL 80.0-9 7.0 Not Available [facility] (Lab) [address] [place], [address], 08/03/2022 17:53:39 08/04/19 23 08/03/2022 CBC/C OMPLE TE BLD COUNT W/DIF F mean red cell hemoglobin 26.4 pg 27.0-3 3.0 low Not Available [facility] (Lab) [address] [place], [address], 08/03/2022 17:53:39 08/04/19 23 08/03/2022 CBC/C OMPLE TE BLD COUNT W/DIF F mean RBC HGB concentratio n 30.6 g/dL 31.0-3 6.0 low Not Available [facility] (Lab) [address] [place], [address], 08/03/2022 17:53:39 08/04/19 23 08/03/2022 CBC/C OMPLE TE BLD COUNT W/DIF F red cell distribution width 12.9 % 11.8-1 5.5 Not Available [facility] (Lab) [address] [place], [address], 08/03/2022 17:53:39 08/04/19 23 08/03/2022 CBC/C OMPLE TE BLD COUNT W/DIF F platelets 308 x10'3 /uL 150-40 0 Not Available [facility] (Lab) [address] [place], [address], 08/03/2022 17:53:39 08/04/19 23 08/03/2022 CBC/C OMPLE TE BLD COUNT W/DIF F mean platelet volume 10.6 fL 9.0-12 .4 Not Available [facility] (Lab) [address] [place], [address], 08/03/2022 17:53:39 08/04/19 23 08/03/2022 CBC/C OMPLE TE BLD COUNT W/DIF F neutrophils 35.1 % 39.0-7 2.0 low Not Available [facility] (Lab) [address] [place], [address], 08/03/2022 17:53:39 08/04/19 23 08/03/2022 CBC/C OMPLE TE BLD COUNT W/DIF F lymphocytes 51.7 % 16.0-4 7.0 high Not Available [facility] (Lab) [address] [place], [address], 08/03/2022 17:53:39 08/04/19 23 08/03/2022 CBC/C OMPLE TE BLD COUNT W/DIF F monocytes 9.8 % 5.0-12 .0 Not Available [facility] (Lab) [address] [place], [address], 08/03/2022 17:53:39 08/04/19 23 08/03/2022 CBC/C OMPLE TE BLD COUNT W/DIF F eosinophils 2.4 % 1.0-7. 0 Not Available [facility] (Lab) [address] [place], [address], 08/03/2022 17:53:39 08/04/19 23 08/03/2022 CBC/C OMPLE TE BLD COUNT W/DIF F basophils 0.7 % 0.0-2. 0 Not Available [facility] (Lab) [address] [place], [address], 08/03/2022 17:53:39 08/04/1908/03/2022 CBC/C OMPLE TE BLD COUNT W/DIF F immature granulocytes 0.3 % 0.00-0 .50 Not Available [facility] (Lab) [address] [place], [address], 08/03/2022 17:53:39 08/04/19 23 08/03/2022 CBC/C OMPLE TE BLD COUNT W/DIF F neutrophils, absolute count 1.04 x10'3 /uL 1.5-8. 0 low Not Available [facility] (Lab) [address] [place], [address], 08/03/2022 17:53:39 08/04/19 23 08/03/2022 CBC/C OMPLE TE BLD COUNT W/DIF F lymphocytes, absolute count 1.53 x10'3 /uL 1.07-3 .43 Not Available [facility] (Lab) [address] [place], [address], 08/03/2022 17:53:39 08/04/19 23 08/03/2022 CBC/C OMPLE TE BLD COUNT W/DIF F monocytes, absolute count 0.29 x10'3 /uL 0.29-0 .99 Not Available [facility] (Lab) [address] [place], [address], 08/03/2022 17:53:39 08/04/19 23 08/03/2022 CBC/C OMPLE TE BLD COUNT W/DIF F eosinophils, absolute count 0.07 x10'3 /uL 0.02-0 .53 Not Available [facility] (Lab) [address] [place], [address], 08/03/2022 17:53:39 08/04/19 23 08/03/2022 CBC/C OMPLE TE BLD COUNT W/DIF F basophils, absolute count 0.02 x10'3 /uL 0.01-0 .08 Not Available [facility] (Lab) [address] [place], [address], 08/03/2022 17:53:39 08/04/19 23 08/03/2022 CBC/C OMPLE TE BLD COUNT W/DIF F immature granulocytes ,absolute 0.01 x10'3 /uL 0.00-0 .05 Not Available [facility] (Lab) [address] [place], [address], 08/03/2022 17:53:39 08/04/19 23 08/03/2022 CBC/C OMPLE TE BLD COUNT W/DIF F nucleated red blood cells 0.0 % -[address] [facility] (Lab) [address] [place], [address], 08/03/2022 17:53:39 08/04/19 23 08/03/2022 CBC/C OMPLE TE BLD COUNT W/DIF F NRBC# 0.00 x10'3 /uL Not Available [facility] (Lab) [address] [place], [address], 08/03/2022 17:53:39 05/26/19 23 05/25/2022 XR, chest [facility] [place] [address] [facility] [place] [address] [phone] Patien t Name: RUTH THOMAS Access ion #: [id number] Sex: M : 1990 1 9 Locati on: RAD Attend ing Physic aleksandr: TA[facility]r: TANA MARTINEZ Exam Date: 023 4:37 PM Exam Name: XR CHEST 2V Admitt ing Diagno sis(es ): RADIOL OGY REPORT - FINAL EXAM: XR CHEST 2V HISTOR Y: Abnorm al Weight loss COMPAR SIM: None. TECHNI QUE: Two views of the chest were perfor med. FINDIN GS: There is a vague densit y projec ting over the mid left heart which could relate to overly ing soft tissue s. A follow -up chest radiog raph or CT would prove confir matory . Pleura l effusi ons, or pulmon ade edema. The heart is not enlarg ed. IMPRES ROSALVA: Page 1 of 2 [facility] [place] Patien t Name: STEVENSajan ER, RUTH Nguyen Access ion #: [id number] Sex: M : 1990 1 9 Exam Date: 023 4:37 PM Exam Name: XR CHEST 2V Admitt ing Diagno sis(es ): Vague densit y projec ts over the left chest. See above. Create d and electr onical ly signed by: Chris frey MD Signed Date: 4:50 PM (CT) Dictat ed by: Chris frey MD DD: 4:48 PM (CT) DT: 4:48 PM (CT) Page 2 of 2 [facility] (Imaging) [address] [place], [address], 06/08/2022 09:03:44 05/26/19 23 05/25/2022 XR, chest , 2 view [facility] [address] [address] Patien t Name: RUTH THOMAS Access ion #: [id number] Sex: M : 1990 1 9 Locati on: RAD Attend ing Physic aleksandr: TANA MARTINEZ Orderi ng Physic aleksandr: TANA MARTINEZ Exam Date: 4:37 PM Exam Name: XR CHEST 2V Admitt ing Diagno sis(es ): RADIOL OGY REPORT - FINAL EXAM: XR CHEST 2V HISTOR Y: Abnorm al Weight loss COMPAR SIM: None. TECHNI QUE: Two views of the chest were perfor med. FINDIN GS: There is a vague densit y projec ting over the mid left heart which could relate to overly ing soft tissue s. A follow -up chest radiog raph or CT would prove confir matory . Pleura l effusi ons, or pulmon ade edema. The heart is not enlarg ed. IMPRES ROSALVA: Page 1 of 2 [facility] Patien t Name: RUTH THOMAS Access ion #: [id number] Sex: M : 1990 1 9 Exam Date: 023 4:37 PM Exam Name: XR CHEST 2V Admitt ing Diagno sis(es ): Vague densit y projec ts over the left chest. See above. Create d and electr onical ly signed by: Chris frey MD Signed Date: 4:50 PM (CT) Dictat ed by: Chris frey MD DD: 4:48 PM (CT) DT: 4:48 PM (CT) Page 2 of [address] (Imaging) [address] [place], [address], 05/30/2022 15:04:29 06/02/19 23 06/01/2022 CT, chest , w/ contr ast [facility] [address] [place] [address] Patien t Name: RUTH THOMAS Access ion #: [id number] Sex: M : 1990 1 1 Locati on: RAD Attend ing Physic aleksandr: TANA MARTINEZ Orderi Physic aleksandr: TANA MARTINEZ Exam Date: 023 3:43 PM Exam Name: CT CHEST W Admitt ing Diagno sis(es ): RADIOL OGY REPORT - FINAL EXAM: CT CHEST W HISTOR Y: abnorm al findin gs on dxz imagin g of other body struct ure 31-yea r-old male with hazy densit y over the left chest on recent chest x-ray. COMPAR SIM: Chest x-ray dated 2022. TECHNI QUE: Helica l CT images of the chest were perfor med with 100 mL Isovue [address] Sagitt al and lund l reform atted images were obtain ed. This CT exam was perfor med using one or more of the follow ing dose reduct ion techni ques: Automa juan antonio exposu re contro l, adjust ment of the mA and/or kV accord ing to patien t size, or use of iterat roberto carlos recons tructi on techni que. FINDIN GS: No pneumo thorax , pulmon ade edema, consol idativ e infilt rates, suspic ious lung Page 1 of 2 [facility] Patien t Name: RUTH THOMAS Access ion #: [id number] Sex: M : 1990 1 1 Exam Date: 023 3:43 PM Exam Name: CT CHEST W Admitt ing Diagno sis(es ): nodule s, or pleura l effusi ons. Hazy opacit y in the left chest on prior chest x-ray is likely relate d to asymme tric densit y and promin ence of the left pector mackenzie major muscle versus the right. No suspic ious medias tinal or axilla ry adenop athy. The heart is not enlarg ed. No thorac ic aortic aneury sm or dissec tion. No fractu res are identi fied about the bony thorax . L1 limbic verteb jameson is incide ntally noted. IMPRES ROSALVA: 1. No acute intrat horaci c proces s. 2. L1 limbic verteb jameson incide ntally noted. Create d and electr onical ly signed by: Jj watson MD Signed Date: 4:21 PM (CT) Dictat ed by: Jj watson MD DD: 023 4:21 PM (CT) DT: 023 4:21 PM (CT) Page 2 of 2 [email or web address] [facility] (Imaging) [address], [place], [address], 06/23/2022 12:33:57 10/06/1910/05/2022 US, abdom en, limit ed No observ ation record ed. [address], [place], [address], 10/26/2022 15:38:12 Result Notes None recorded. Problems Name Problem SNOMED Code Status Onset Date Resolution Date Notes Provider Name and Address Organization Details Recorded Time Lesion of penis 900192682 Active 2022 Not Available [facility] 3 10:09:01 Weight loss 36878656 Active 2022 Not Available [facility] 3 10:09:01 Standard chest X-ray abnormal 898983820 Active 2022 Not Available [facility] 3 10:09:01 Gastroesophag eal reflux disease without esophagitis 132140173 Active 2022 Not Available [facility] 3 10:09:01 Gastroesophag eal reflux disease 717101783 Active 2022 Not Available [facility] 3 10:09:01 Leukopenia 01769464 Active 2022 Not Available [facility] 3 10:09:01 White blood cell abnormality 018890535 Active 2022 Not Available [facility] 3 10:09:01 Pearly penile papules 759132 Active 2022 Miguel Ángel Mariano MD [address] [facility], [address], [address] , [facility] [place] [employer] 3 12:26:05 Problem Notes None recorded. Procedures Surgical History Date Name Laterality Status Provider Name and Address Organization Details Recorded Time Knee Surgery completed Evette Salgado RN [facility] [employer] 05/25/2022 15:36:33 Imaging Results Imaging Date Name Status LastModified by [facility] Details LastModified Time 05/25/2022 XR, chest completed cyahl [facility] (Imaging) [address] [place], [address], 06/08/2022 09:03:44 05/25/2022 XR, chest, 2 view completed [email or web address] (Imaging) [address] [place] [place], [address], 05/30/2022 15:04:29 06/01/2022 CT, chest, w/ contrast completed [email or web address] [facility] (Imaging) [address], [place], [address], 06/23/2022 12:33:57 10/05/2022 US, abdomen, limited completed [facility] [address], [place], [address], 10/26/2022 15:38:12 Procedure Notes None recorded. Medical Equipment None Reported. Allergies No known drug allergies Medications Name Sig Start Date Stop Date Status Note LastModified by Organization Details LastModified Time sucralfate 100 mg/mL oral suspension 05/01 completed Not Available Not Available Not Available sucralfate 1 gram tablet TAKE 1 TABLET BY MOUTH THREE TIMES DAILY BEFORE MEALS 05/01 completed Not Available Not Available Not Available cyanocobalam in (vit B-12) 1,000 mcg tablet TAKE 1 TABLET BY MOUTH DAILY 05/01 completed Not Available Not Available Not Available omeprazole 20 mg capsule,hector yed release TAKE 1 CAPSULE BY MOUTH EVERY DAY active Not Available Not Available No t Available Vitals Date Recorded Body height Body mass index (BMI) Body weight Body temperature Heart rate Systolic blood pressure Diastolic blood pressure Provider Name and Address Organization Details Last Updated DateTime 3 187.96 cm 20.5 kg/m2 21336.7 8 g 97.9 [degF] 84 /min 120 mm[Hg] 78 mm[Hg] Evette squires RN [facility] [employer] [facility] 3 15:40:49 Date Recorded Body height Body mass index (BMI) Body weight Body temperature Systolic blood pressure Diastolic blood pressure Provider Name and Address Organization Details Last Updated DateTime 3 187.96 cm 20.5 kg/m2 40126.7 8 g 97.3 [degF] 112 mm[Hg] 86 mm[Hg] DAVID Tracey DC [employer] [facility] [employer] [facility] 3 15:40:29 Date Recorded Body height Body mass index (BMI) Body weight Body temperature Heart rate Systolic blood pressure Diastolic blood pressure Provider Name and Address Organization Details Last Updated DateTime 3 187.96 cm 20.3 kg/m2 88984.5 9 g 98 [degF] 71 /min 112 mm[Hg] 70 mm[Hg] Wendyshaggy Dow [facility] [employer] [facility] 3 15:26:24 Date Recorded Body height Heart rate Body mass index (BMI) Body weight Body temperature Oxygen saturation Oxygen saturation in Arterial blood by Pulse oximetry Systolic blood pressure Diastolic blood pressure Provider Name and Address Organization Details Last Updated DateTime 3 187.96 cm 65 /min 20.7 kg/m2 24192.3 7 g 98.1 [degF] 99 % 99 % 134 mm[Hg] 92 mm[Hg] Socrates Currieshira [facility] Sina [facility] 3 12:13:51 Date Recorded Body height Body weight Body temperature Heart rate Oxygen saturation Oxygen saturation in Arterial blood by Pulse oximetry Systolic blood pressure Diastolic blood pressure Provider Name and Address Organization Details Last Updated DateTime 3 187.96 cm 48710.9 6 g 98.6 [degF] 76 /min 97 % 97 % 126 mm[Hg] 70 mm[Hg] Estrellita Guy MA [facility] [employer] [facility] 3 15:48:28 Social History Question Answer Notes LastModified by Organizat ion Details LastModified Time Tobacco Smoking Status Never Smoker Latoya angeles [facility] [employer] [facility] 09/21/2022 12:13:25 Do You Have An Advance Directive? No Information not available 05/25/2022 What Is Your Level Of Alcohol Consumption? Occasional Information not available 05/25/2022 Is Blood Transfusion Acceptable In An Emergency? Yes Information not available 09/21/2022 What Is Your Level Of Caffeine Consumption? Moderate Information not available 05/25/2022 In The 14 Days Before Symptom Onset, Have You Had Close Contact With A Laboratory-confi rmed COVID-19 While That Case Was Ill? No Information not available 09/21/2022 In The 14 Days Before Symptom Onset, Have You Had Close Contact With A Person Who Is Under Investigation For COVID-19 While That Person Was Ill? No Information not available 09/21/2022 Are You Currently Employed? Yes Information not available 09/21/2022 What Type Of Diet Are You Following? REGULAR Information not available 05/25/2022 What Is The Highest Grade Or Level Of School You Have Completed Or The Highest Degree You Have Received? [id number] Information not available 09/21/2022 What Is Your Occupation? [employer] Information not available 09/21/2022 Have There Been Any Changes To Your Family Or Social Situation? No Information not available 09/21/2022 What Is The Fluoride Status Of Your Home? Fluoridated Information not available 09/21/2022 Are There Any Guns Present In Your Home? No Information not available 09/21/2022 Do You Use Insect Repellent Routinely? No Information not available 09/21/2022 Where Do You Live? SingleLevelHouse Information not available 09/21/2022 Do You Have A Medical Power Of Ms Sql Dba? No Information not available 09/21/2022 What Was The Date Of Your Most Recent Tobacco Screening? 09/21/2022 Information not available 09/21/2022 Do You Have Any Pets? Yes Information not available 09/21/2022 What Is Your Relationship Status? Single Information not available 05/25/2022 Do You Use Your Seat Belt Or Car Seat Routinely? Yes Information not available 09/21/2022 Are You Sexually Active? No Information not available 09/21/2022 Do You Have Smoke And Carbon Monoxide Detectors In Your Home? Yes Information not available 09/21/2022 Are You Passively Exposed To Smoke? No Information not available 09/21/2022 Are There Any Smokers In Your House? No Information not available 09/21/2022 Do You Feel Stressed (tense, Restless, Nervous, Or Anxious, Or Unable To Sleep At Night)? [id number] Information not available 09/21/2022 Do You Use Any Illicit Or Recreational Drugs? No Information not available 09/21/2022 Do You Use Sunscreen Routinely? No Information not available 09/21/2022 Have You Recently Traveled Abroad? No Information not available 09/21/2022 Do You Have Any Dietary Restrictions? No Information not available 09/21/2022 Sex: Unknown Functional Status Question Answer Note LastModified by Organizat ion Details LastModified Time What is your exercise level? Moderate moving around a lot at work Information not available 05/25/2022 Mental Status None recorded. Family History Relationship Description Onset Age of this Age Resolved Age Notes LastModified by Organization Details LastModified Time Mother Asthma Not availab le 05/25/2022 15:34:55 Mother Anemia Not available 09/21/2022 12:13:24 Mother Rheumatism Not availa ble 09/21/2022 12:13:24 Father Hypertensive disorder Not available 15:35:39 Medical History Condition Response DEPRESSION (INCLUDING POST ) Y HAVE YOU BEEN HOSPITALIZED OR SEEN IN [facility] IN THE PAST YEAR ? Y HEADACHES/MIGRAINES Y DIZZINESS Y ANXIETY DISORDER Y Past Encounters Encounter ID Performer Location Encounter Start Date Encounter Closed Date Diagnosis/Indication Diagnosis SNOMED-CT Code Diagnosis ICD10 Code Diagnosis Note [id number] Joe Martinez MD [facility] Internal Med [facility] [address] [facility] [address] [place] [address] 05/25/2022 14:56:30 05/25/2022 16:50:30 Lesion of penis 382670890 N48.9 Weight loss 83282576 R63 .4 Screening for cardiovascular system disease 726509321 Z13.6 [id number] Joe Martinez MD [facility] Internal Med [place] [address] [place] [address] [place] [address] 06/22/2022 15:13:33 06/22/2022 15:53:31 Gastroesophageal reflux disease without esophagitis 322229471 K21.9 [id number] Joe Martinez MD [facility] Internal Med [place] [address] [facility] [address] [place] [address] 07/27/2022 15:18:21 07/27/2022 16:40:34 Leukopenia 58235125 D72.819 Lesion of penis 07759515 0 N48.9 Gastroesop hageal reflux disease 332564650 K21.9 [id number] Miguel Ángel Mariano MD [facility] [place] [address] [place] [address], [address] [place] [address] 09/21/2022 12:01:12 09/21/2022 12:25:41 Pearly penile papules 756134 D29.0 :Reassuran ce providedFo llow up as needed [id number] Joe Martinez MD [facility] Internal Med [facility] [address] [facility], [facility] [address] [place] [address] 10/26/2022 15:34:59 10/26/2022 16:10:50 Gastroesophageal reflux disease 700082200 K21.9 Leukopenia 23097106 D72. 819 Health Concerns Section Related Observation LastModified by Organization Detai ls LastModified Time None Recorded Concern Status LastModified by Organization Details LastModified Time None Recorded Advance Directives Directive N: Payers Encounter Date Sequence Insurance Name Policy Number Policy Brambila Covered Member ID Brambila Member ID Guarantor Name 05/25/2022 1 [employer] (PPO) Law Garcia [id number] Law Garcia 06/22/2022 1 [employer] Law Garcia [id number] Law Garcia 07/27/2022 1 [employer] (PPO) Law Garcia [id number] Law Garcia 09/21/2022 1 [employer] (PP[employer]) Law Garcia [id number] Law Garcia 10/26/2022 1 [employer] (PPO) Law Garcia [id number] Law Garcia Notes Date Note Type Note Provider Name and Address Organization Details Recorded Time 05/25/2022 text/html 31-year-old male new patient meds none allergies none surgeries he has had surgery for ACL that is been torn family history father stroke mom anemia socially single does not smoke vape drink or do drugs he works for [employer] Joe Martinez MD [address], [place], [address], [employer] 06/13/2022 22:24:09 06/22/2022 text/html his upper GI sym ptoms have gone CT scan of chest was unremarkable white blood cell count was 3 point Joe Martinez MD [address], [place], [address], [employer] 06/22/2022 21:53:44 07/27/2022 text/html has some white l ooking lesions on penisleukopenia on blood work asymptomaticGERD EGD mild gastritis ppi feeling better Joe Martinez MD [address], [place], [address], [employer] 07/30/2022 14:56:57 09/21/2022 text/html :09/21/2022 ORIGI NAL HPI - Patient presents for evaluation of penile lesion -- he reports he has, for a long time, had small pearly papules on the lund of his glans -- PCP sending over for urologic evaluation Miguel Ángel Mariano MD [address], [place], [address], [employer] [facility] [employer] 09/21/2022 12:26:50 10/26/2022 text/html Leukopenia no si gns or symptoms of infectionGERD stable on omeprazoleDid see Urology for the penile lesion benign Joe Martinez MD [address], [place], [address], [employer] [facility] [employer] 10/26/2022 21:01:02
--- OUTSIDE RECORDS SUMMARY | 2024-05-01 13:02 | XMS_ITS | Clinical Summary ---
Author Organization [facility] Address [address] [facility] Attn: Epic Prelude ADT FAIZAN BELTRAN [address] Care Team Providers Care Refuse And Recycling Worker Name Role Phone Joe Martinez MD Primary Care Provider [phone] Allergies No known active allergies Medications sucralfate [...] Data STL ABSTRACTION Provider, Abstract 02/09/2024 Telephone [facility] On[facility] - [place] [address] [place] [address] Abel Locke MD lab work for appointment 02/08/2024 Orders Only [facility] - [place] [address] [place] [address] Abel Locke MD Chronic anemia [...] on file Legal 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 Gender Identity Not on file Sexual Orientation [...] Description 06/03/2024 1:15 PM CDT Office Visit [facility] On[facility] [place] [address] [place] [address] [facility] [address] [place] [address] Abel Locke MD [address] [facility] [address] [place] [address] Health Maintenance Due Date Last Done Comments INFLUENZA VACCINE (#1) 2023 Preventative Visit- Commercial 03/06/2024 DTAP/TDAP/TD VACCINES (8 - Td or Tdap) 11/10/2027 11/09/2017, 08/24/2006, 10/23/1995, Additional history exists HEPATITIS B VACCINES Completed 06/18/2002, 03/06/2000, 09/13/1996 HPV VACCINES Aged Out No longer eligi ble based on patient's age to complete this topic Insurance INDIVIDUAL EXCHANGE [id number] INDIVIDUAL EXCHANGE [id number] Care Teams Refuse And Recycling Worker Relationship Specialty Start Date End Date Joe Martinez MD [address] [place], [place] [phone] PCP - General Internal Medicine 09/15/22
--- OUTSIDE RECORDS SUMMARY | 2024-05-01 13:02 | XMS_ITS | Encounter Summary ---
Author Organization [facility] Address 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 Gender Identity Not on file Sexual Orientation Not on file documented as of this encounter Plan of Treatment Upcoming Encounters Date Type Department Care Team (Late st Contact Info) Description 06/03/2024 1:15 PM CDT Office Visit [facility] [place] [address] [place] [address] [place] [address] [place] [address] [address] [place] [address] documented as of this encounter Visit Diagnoses Not on filedocumented in this encounter Care Teams Ramp Jockey Relationship Specialty Start Date End Date Joe Martinez MD [address] [place] [phone] PCP - General Internal Medicine 09/15/22 documented as of this encounter
--- NOTE | 2024-05-01 13:19 | ECG_ITS ---
Test Date: 2024-05-01 13:22:51 Measurements Intervals [place] Rate: 90 P: 73 MT: 153 QRS: 84 QRSD: 94 T: 56 QT: 333 QTc: 409 Interpretive Statements SINUS RHYTHM BASELINE ARTIFACT- I, III, AVL NORMAL ECG Compared to ECG 05/01/2024 10:21:10 No significant changes Electronically Signed On 05-01-2024 13:48:40 TRUCKER HAND by Douglas Jimenez D.O.
[2024-05-01 13:28] VITALS: BP 129/93; PULSE 86; RESP 17; O2SAT 100
[2024-05-01 14:06] LABS: Troponin I < 0.012 ng/mL (0.000-0.034)
[2024-05-01] MEDS: BELLADONNA ALK/PHENOB ELIX 10 ML, MAG HYDROX/ALUMINUM HYD/SIMETH 30 ML, LIDOCAINE 2% VI... PO (14:33)
[2024-05-01] MEDS: SODIUM CHLORIDE 0.9% IV 1,000 ML 999 ML IV CONT (14:41)
[2024-05-01 14:54] VITALS: BP 121/80; PULSE 84; RESP 18; O2SAT 100
[2024-05-01 14:55] VITALS: RESP 18; O2SAT 100
--- NOTE | 2024-05-01 15:50 | ECG_ITS ---
Test Date: 2024-05-01 15:54:29 Measurements Intervals [place] Rate: 68 P: 66 DE: 167 QRS: 83 QRSD: 93 T: 62 QT: 363 QTc: 386 Interpretive Statements SINUS RHYTHM NORMAL ECG Compared to ECG 05/01/2024 13:22:51 No significant changes Electronically Signed On 05-01-2024 16:15:50 INDUSTRIAL CHEMIST by Douglas Jimenez D.O.
[2024-05-01 16:33] VITALS: BP 124/83; PULSE 60; RESP 14; TEMP 37; O2SAT 99
[2024-05-01 17:18] LABS: Troponin I < 0.012 ng/mL (0.000-0.034)
== END 2024-05-01 16:35 | disposition home or self-care (01) ==
PROVIDERS: Emergency Provider Emergency Medicine
DX: K20.90 Esophagitis, unspecified without bleeding (principal); F41.9 Anxiety disorder, unspecified
CPT/HCPCS: 36415; 71046; 80053; 83690; 84484; 85025; 85610; 85730; 93005; 96360; 99284; A9270; J7030

== ENCOUNTER 2024-05-31 11:56 | Outpatient (CLI) | payer OTHER, SELFPAY ==
--- OUTSIDE RECORDS SUMMARY | 2024-05-31 12:38 | XMS_ITS | Data Portability ---
Author Organization [facility] [employer] (Closed), Main Office Address [address] [place] [address] Assessment Encounter Date Assessment Date Assessment LastModified by Organization Details LastModified Time 06/22/2022 06/22/2022 Continue PPI see me in 6-8 weeks [email or web address] Not available 06/22/2022 21:52:39 07/27/2022 07/27/2022 Urology Recheck CBC Continue PPI See me 3 months [email or web address] Not available 07/30/2022 14:56:37 10/26/2022 10/26/2022 Continue current therapy see me back in 6 months and he has a follow-up with Hematology [email or web address] Not available 10/26/2022 21:00:44 Plan of Treatment Reminders Order Date Submit Date Provider Last Modified By Organization Details Last Modified Time Details Appointments None recorded. Lab CBC w/ auto diff 2022 023 [facility] (Lab), [address] [place], [address], 17:53:39 Referral urologist referral 2022 023 eloise Rowell MD, [address] [facility], [place], [address], 09:00:19 Procedures None recorded. Surgeries None recorded. Imaging None recorded. Medication Orders omeprazole 20 mg capsule,del ayed release 2022 023 [id number], [address] , [place], [place], [id number], 15:20:56 omeprazole 20 mg capsule,del ayed release 2022 023 [id number], [address], [place], [place], [id number], 15:20:56 Patient TargetsNo targets recorded. Patient Instructions Encounter Date Encounter Id Patient Instructions Last Modified By Organization Details Last Modified Time 05/02/2024 [id number] unfortunately [facility] is out of network for him I encouraged the patient to keep the appointment on May [address] 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 Patient wants me to try to figure out the previous upper endoscopy report we will try to look in the records to see if I can see the patient's previous upper endoscopy report endoscopies results were reviewed patient had it in July 11, 2022 1 esophageal biopsy did show reactive esophagitis but no eosinophilic esophagitis I advised the patient that he needs to see the window trimmer apprentice and get a repeat upper endoscopy with multiple biopsies possible dilation if needed there will be no short cut I think endoscopy would be the way to go patient is going to keep his appointment with the window trimmer apprentice on May 15 [email or web address] Not available 05/02/2024 15:49:38 Reason for Referral Urologist Referral for Blayne taylor Referring Physician: Joe Martinez, Internal Medicine, Encounter Date: 07/27/2022 Results Created Date Observation Date Name Description Value Unit Range Abnormal Flag Note LastModifiedBy Organization Detail LastModifiedTime 05/26/1905/25/2022 CBC/C OMPLE TE BLD COUNT W/DIF F white blood cells 3.8 x10'3 /uL 4.2-10 .8 low Not Available [facility] (Lab) [address], [place], [address], 05/25/2022 18:14:18 05/26/19 23 05/25/2022 CBC/C OMPLE TE BLD COUNT W/DIF F red blood cells 5.74 x10'6 /uL 4.10-5 .80 Not Available [facility] (Lab) [address] [place], [address], 05/25/2022 18:14:18 05/26/19 23 05/25/2022 CBC/C OMPLE TE BLD COUNT W/DIF F hemoglobin 15.1 g/dL 13.2-1 7.0 Not Available [facility] (Lab) [address] [place], [address], 05/25/2022 18:14:18 05/26/19 23 05/25/2022 CBC/C OMPLE TE BLD COUNT W/DIF F hematocrit 49.1 % 39.3-5 0.0 Not Available [facility] (Lab) [address] [place], [address], 05/25/2022 18:14:18 05/26/19 23 05/25/2022 CBC/C OMPLE TE BLD COUNT W/DIF F mean red cell volume 85.5 fL 80.0-9 7.0 Not Available [facility] (Lab) [address] [place], [address], 05/25/2022 18:14:18 05/26/19 23 05/25/2022 CBC/C OMPLE TE BLD COUNT W/DIF F mean red cell hemoglobin 26.3 pg 27.0-3 3.0 low Not Available [facility] (Lab) [address] [place], [address], 05/25/2022 18:14:18 05/26/19 23 05/25/2022 CBC/C OMPLE TE BLD COUNT W/DIF F mean RBC HGB concentratio n 30.8 g/dL 31.0-3 6.0 low Not Available [facility] (Lab) [address] [place], [address], 05/25/2022 18:14:18 05/26/19 23 05/25/2022 CBC/C OMPLE TE BLD COUNT W/DIF F red cell distribution width 12.9 % 11.8-1 5.5 Not Available [facility] (Lab) [address] [place], [address], 05/25/2022 18:14:18 05/26/19 23 05/25/2022 CBC/C OMPLE TE BLD COUNT W/DIF F platelets 331 x10'3 /uL 150-40 0 Not Available [facility] (Lab) [address] [place], [address], 05/25/2022 18:14:18 05/26/19 23 05/25/2022 CBC/C OMPLE TE BLD COUNT W/DIF F mean platelet volume 10.2 fL 9.0-12 .4 Not Available [facility] (Lab) [address] [place], [address], 05/25/2022 18:14:18 05/26/19 23 05/25/2022 CBC/C OMPLE TE BLD COUNT W/DIF F neutrophils 36.5 % 39.0-7 2.0 low Not Available [facility] (Lab) [address] [place], [address], 05/25/2022 18:14:18 05/26/19 23 05/25/2022 CBC/C OMPLE TE BLD COUNT W/DIF F lymphocytes 52.8 % 16.0-4 7.0 high Not Available [facility] (Lab) [address] [place], [address], 05/25/2022 18:14:18 05/26/19 23 05/25/2022 CBC/C OMPLE TE BLD COUNT W/DIF F monocytes 8.8 % 5.0-12 .0 Not Available [facility] (Lab) [address] [place], [address], 05/25/2022 18:14:18 05/26/19 23 05/25/2022 CBC/C OMPLE TE BLD COUNT W/DIF F eosinophils 1.6 % 1.0-7. 0 Not Available [facility] (Lab) [address] [place], [address], 05/25/2022 18:14:18 05/26/19 23 05/25/2022 CBC/C OMPLE TE BLD COUNT W/DIF F basophils 0.3 % 0.0-2. 0 Not Available [facility] (Lab) [address] [place], [address], 05/25/2022 18:14:18 05/26/19 23 05/25/2022 CBC/C OMPLE TE BLD COUNT W/DIF F immature granulocytes 0.0 % 0.00-0 .50 Not Available [facility] (Lab) [address] [place], [address], 05/25/2022 18:14:18 05/26/19 23 05/25/2022 CBC/C OMPLE TE BLD COUNT W/DIF F neutrophils, absolute count 1.37 x10'3 /uL 1.5-8. 0 low Not Available [facility] (Lab) [address] [place], [address], 05/25/2022 18:14:18 05/26/19 23 05/25/2022 CBC/C OMPLE TE BLD COUNT W/DIF F lymphocytes, absolute count 1.98 x10'3 /uL 1.07-3 .43 Not Available [facility] (Lab) [address] [place], [address], 05/25/2022 18:14:18 05/26/19 23 05/25/2022 CBC/C OMPLE TE BLD COUNT W/DIF F monocytes, absolute count 0.33 x10'3 /uL 0.29-0 .99 Not Available [facility] (Lab) [address] [place], [address], 05/25/2022 18:14:18 05/26/19 23 05/25/2022 CBC/C OMPLE TE BLD COUNT W/DIF F eosinophils, absolute count 0.06 x10'3 /uL 0.02-0 .53 Not Available [facility] (Lab) [address] [place], [address], 05/25/2022 18:14:18 05/26/19 23 05/25/2022 CBC/C OMPLE TE BLD COUNT W/DIF F basophils, absolute count 0.01 x10'3 /uL 0.01-0 .08 Not Available [facility] (Lab) [address] [place], [address], 05/25/2022 18:14:18 05/26/19 23 05/25/2022 CBC/C OMPLE TE BLD COUNT W/DIF F immature granulocytes ,absolute 0.00 x10'3 /uL 0.00-0 .05 Not Available [facility] (Lab) [address] [place], [address], 05/25/2022 18:14:18 05/26/19 23 05/25/2022 CBC/C OMPLE TE BLD COUNT W/DIF F nucleated red blood cells 0.0 % -0 Not Available [facility] (Lab) [address] [place], [address], 05/25/2022 18:14:18 05/26/19 23 05/25/2022 CBC/C OMPLE TE BLD COUNT W/DIF F NRBC# 0.00 x10'3 /uL Not Available [facility] (Lab) [address] [place], [address], 05/25/2022 18:14:18 05/26/19 23 05/25/2022 COMPR EHENS ROBERTO CARLOS METAB OLIC PANEL sodium 139 mmol/ L 137-14 5 Not Available [facility] (Lab) [address] [place], [address], 05/25/2022 19:07:56 05/26/19 23 05/25/2022 COMPR EHENS ROBERTO CARLOS METAB OLIC PANEL potassium 4.7 mmol/ L 3.5-5. 1 Not Available [facility] (Lab) [address] [place], [address], 05/25/2022 19:07:56 05/26/19 23 05/25/2022 COMPR EHENS ROBERTO CARLOS METAB OLIC PANEL chloride 103 mmol/ L 98-107 Not Available [facility] (Lab) [address] [place], [address], 05/25/2022 19:07:56 05/26/19 23 05/25/2022 COMPR EHENS ROBERTO CARLOS METAB OLIC PANEL carbon dioxide 26 mmol/ L 22-30 Not Available [facility] (Lab) [address] [place], [address], 05/25/2022 19:07:56 05/26/19 23 05/25/2022 COMPR EHENS ROBERTO CARLOS METAB OLIC PANEL anion gap 14.7 mmol/ L 14-22 Not Available [facility] (Lab) [address] [place], [address], 05/25/2022 19:07:56 05/26/19 23 05/25/2022 COMPR EHENS ROBERTO CARLOS METAB OLIC PANEL glucose 88 mg/dL 70-99 Not Available [facility] (Lab) [address] [place], [address], 05/25/2022 19:07:56 05/26/19 23 05/25/2022 COMPR EHENS ROBERTO CARLOS METAB OLIC PANEL BUN 17 mg/dL 8-19 Not Available [facility] (Lab) [address] [place], [address], 05/25/2022 19:07:56 05/26/19 23 05/25/2022 COMPR EHENS ROBERTO CARLOS METAB OLIC PANEL creatinine 0.95 mg/dL 0.66-1 .25 Not Available [facility] (Lab) [address] [place], [address], 05/25/2022 19:07:56 05/26/19 23 05/25/2022 COMPR EHENS ROBERTO CARLOS METAB OLIC PANEL GFR >60 Refer ence Range : [place] ge GFR Healt hy Adult : >60 [...] or ethni c subgr oups, such as Ezequiel nics. Outsi de the valid ated aaron [...] calcu lator is avail able on the [facility] websi te: https ://arlyn soriano.aleksandr rg/pr miloess ional s/kdo qi/gf r_cal culat or Not Available [facility] (Lab) [address] [place], [address], 05/25/2022 19:07:56 05/26/19 23 05/25/2022 COMPR EHENS ROBERTO CARLOS METAB OLIC PANEL alkaline phosphatase 59 U/L 38-126 Not Available [facility] (Lab) [address] [place], [address], 05/25/2022 19:07:56 05/26/19 23 05/25/2022 COMPR EHENS ROBERTO CARLOS METAB OLIC PANEL alanine aminotransfe rase 16 U/L 0-50 Not Available [facility] (Lab) [address] [place], [address], 05/25/2022 19:07:56 05/26/19 23 05/25/2022 COMPR EHENS ROBERTO CARLOS METAB OLIC PANEL aspartate aminotransfe rase 24 U/L 15-46 Not Available [facility] (Lab) [address] [place], [address], 05/25/2022 19:07:56 05/26/19 23 05/25/2022 COMPR EHENS ROBERTO CARLOS METAB OLIC PANEL bilirubin, total 0.90 mg/dL 0.20-1 .30 Not Available [facility] (Lab) [address] [place], [address], 05/25/2022 19:07:56 05/26/19 23 05/25/2022 COMPR EHENS ROBERTO CARLOS METAB OLIC PANEL calcium 9.8 mg/dL 8.4-10 .2 Not Available [facility] (Lab) [address] [place], [address], 05/25/2022 19:07:56 05/26/19 23 05/25/2022 COMPR EHENS ROBERTO CARLOS METAB OLIC PANEL total protein 7.9 g/dL 6.3-8. 2 Not Available [facility] (Lab) [address] [place], [address], 05/25/2022 19:07:56 05/26/19 23 05/25/2022 COMPR EHENS ROBERTO CARLOS METAB OLIC PANEL albumin 4.8 g/dL 3.4-5. 0 Not Available [facility] (Lab) [address] [place], [address], 05/25/2022 19:07:56 05/26/19 23 05/25/2022 COMPR EHENS ROBERTO CARLOS METAB OLIC PANEL globulin 3.1 g/dL 2.6-4. 2 Not Available [facility] (Lab) [address] [place], [address], 05/25/2022 19:07:56 05/26/19 23 05/25/2022 COMPR EHENS ROBERTO CARLOS METAB OLIC PANEL A/G ratio 1.5 ratio 1.0-2. 0 Not Available [facility] (Lab) [address] [place], [address], 05/25/2022 19:07:56 05/26/19 23 05/25/2022 LIPID PANEL cholesterol 176 mg/dL 140-19 9 NIH YOVANNY NSUS RECOM MENDA TION FOR CONNIE STERO L: ADULT CHILD LOW RISK: <200 <170 BORDE RLINE : <200- 239 ----- HIGH RISK: >240 >200 Not Available [facility] (Lab) [address] [place], [address], 05/25/2022 19:07:59 05/26/19 23 05/25/2022 LIPID PANEL triglyceride s 39 mg/dL 0-150 NIH YOVANNY NSUS REPOR T RECOM MENDA TION FOR TRIGL YCERI JEFF: ADULT CHILD LOW RISK: <150 ----- BODER LINE: 150-1 99 ----- HIGH RISK: >200 ----- Not Available [facility] (Lab) [address] [place], [address], 05/25/2022 19:07:59 05/26/19 23 05/25/2022 LIPID PANEL HDL cholesterol 68 mg/dL 40- Not Available [facility] (Lab) [address] [place], [address], 05/25/2022 19:07:59 05/26/19 23 05/25/2022 LIPID PANEL [...] NOT BE REPOR JUAN ANTONIO. Not Available [facility] (Lab) [address] [place], [address], 05/25/2022 19:07:59 05/26/19 23 05/25/2022 T4 FREE free T4 0.81 NG/dL 0.78-2 .19 Not Available [facility] (Lab) [address] [place], [address], 05/25/2022 19:28:25 05/26/19 23 05/25/2022 T3 FREE free T3 3.3 pg/mL 2.77-5 .27 Not Available [facility] (Lab) [address] [place], [address], 05/25/2022 19:28:28 05/26/19 23 05/25/2022 TSH thyroid-stim ulating hormone 1.380 uIU/m L 0.465- 4.680 Not Available [facility] (Lab) [address] [place], [address], 05/25/2022 19:38:42 08/04/19 23 08/03/2022 CBC/C OMPLE TE BLD COUNT W/DIF F white blood cells 3.0 x10'3 /uL 4.2-10 .8 low Not Available [facility] (Lab) [address] [place], [address], 08/03/2022 17:53:39 08/04/19 23 08/03/2022 CBC/C OMPLE TE BLD COUNT W/DIF F red blood cells 5.12 x10'6 /uL 4.10-5 .80 Not Available [facility] (Lab) [address] [place], [address], 08/03/2022 17:53:39 08/04/19 23 08/03/2022 CBC/C OMPLE TE BLD COUNT W/DIF F hemoglobin 13.5 g/dL 13.2-1 7.0 Not Available [facility] (Lab) [address] [place], [address], 08/03/2022 17:53:39 08/04/19 23 08/03/2022 CBC/C OMPLE TE BLD COUNT W/DIF F hematocrit 44.1 % 39.3-5 0.0 Not Available [facility] (Lab) [address] [place], [address], 08/03/2022 17:53:39 08/04/19 23 08/03/2022 CBC/C OMPLE TE BLD COUNT W/DIF F mean red cell volume 86.1 fL 80.0-9 7.0 Not Available [facility] (Lab) [address] [place], [address], 08/03/2022 17:53:39 08/04/19 23 08/03/2022 CBC/C OMPLE TE BLD COUNT W/DIF F mean red cell hemoglobin 26.4 pg 27.0-3 3.0 low Not Available [facility] (Lab) [address] [place], [address], 08/03/2022 17:53:39 08/04/19 23 08/03/2022 CBC/C OMPLE TE BLD COUNT W/DIF F mean RBC HGB concentratio n 30.6 g/dL 31.0-3 6.0 low Not Available [facility] (Lab) [address] [place], [address], 08/03/2022 17:53:39 08/04/19 23 08/03/2022 CBC/C OMPLE TE BLD COUNT W/DIF F red cell distribution width 12.9 % 11.8-1 5.5 Not Available [facility] (Lab) [address] [place], [address], 08/03/2022 17:53:39 08/04/19 23 08/03/2022 CBC/C OMPLE TE BLD COUNT W/DIF F platelets 308 x10'3 /uL 150-40 0 Not Available [facility] (Lab) [address] [place], [address], 08/03/2022 17:53:39 08/04/19 23 08/03/2022 CBC/C OMPLE TE BLD COUNT W/DIF F mean platelet volume 10.6 fL 9.0-12 .4 Not Available [facility] (Lab) [address] [place], [address], 08/03/2022 17:53:39 08/04/19 23 08/03/2022 CBC/C OMPLE TE BLD COUNT W/DIF F neutrophils 35.1 % 39.0-7 2.0 low Not Available [facility] (Lab) [address] [place], [address], 08/03/2022 17:53:39 08/04/19 23 08/03/2022 CBC/C OMPLE TE BLD COUNT W/DIF F lymphocytes 51.7 % 16.0-4 7.0 high Not Available [facility] (Lab) [address] [place], [address], 08/03/2022 17:53:39 08/04/19 23 08/03/2022 CBC/C OMPLE TE BLD COUNT W/DIF F monocytes 9.8 % 5.0-12 .0 Not Available [facility] (Lab) [address] [place], [address], 08/03/2022 17:53:39 08/04/19 23 08/03/2022 CBC/C OMPLE TE BLD COUNT W/DIF F eosinophils 2.4 % 1.0-7. 0 Not Available [facility] (Lab) [address] [place], [address], 08/03/2022 17:53:39 08/04/19 23 08/03/2022 CBC/C OMPLE TE BLD COUNT W/DIF F basophils 0.7 % 0.0-2. 0 Not Available [facility] (Lab) [address] [place], [address], 08/03/2022 17:53:39 08/04/19 23 08/03/2022 CBC/C OMPLE TE BLD COUNT W/DIF F immature granulocytes 0.3 % 0.00-0 .50 Not Available [facility] (Lab) [address] [place], [address], 08/03/2022 17:53:39 08/04/19 23 08/03/2022 CBC/C OMPLE TE BLD COUNT W/DIF F neutrophils, absolute count 1.04 x10'3 /uL 1.5-8. 0 low Not Available [facility] (Lab) [address] [place], [address], 08/03/2022 17:53:39 08/04/19 23 08/03/2022 CBC/C OMPLE TE BLD COUNT W/DIF F lymphocytes, absolute count 1.53 x10'3 /uL 1.07-3 .43 Not Available [facility] (Lab) [address] [place], [address], 08/03/2022 17:53:39 08/04/19 23 08/03/2022 CBC/C OMPLE TE BLD COUNT W/DIF F monocytes, absolute count 0.29 x10'3 /uL 0.29-0 .99 Not Available [facility] (Lab) [address] [place], [address], 08/03/2022 17:53:39 08/04/19 23 08/03/2022 CBC/C OMPLE TE BLD COUNT W/DIF F eosinophils, absolute count 0.07 x10'3 /uL 0.02-0 .53 Not Available [facility] (Lab) [address] [place], [address], 08/03/2022 17:53:39 08/04/19 23 08/03/2022 CBC/C OMPLE TE BLD COUNT W/DIF F basophils, absolute count 0.02 x10'3 /uL 0.01-0 .08 Not Available [facility] (Lab) [address] [place], [address], 08/03/2022 17:53:39 08/04/19 23 08/03/2022 CBC/C OMPLE TE BLD COUNT W/DIF F immature granulocytes ,absolute 0.01 x10'3 /uL 0.00-0 .05 Not Available [facility] (Lab) [address] [place], [address], 08/03/2022 17:53:39 08/04/19 23 08/03/2022 CBC/C OMPLE TE BLD COUNT W/DIF F nucleated red blood cells 0.0 % -0 Not Available [facility] (Lab) [address] [place], [address], 08/03/2022 17:53:39 08/04/19 23 08/03/2022 CBC/C OMPLE TE BLD COUNT W/DIF F NRBC# 0.00 x10'3 /uL Not Available [facility] (Lab) [address] [place], [address], 08/03/2022 17:53:39 05/26/19 23 05/25/2022 XR, chest [facility] [address] [place] [address] Patien t Name: RUTH THOMAS Access ion #: [id number] Sex: M : 1990 1 9 Locati on: RAD Attend ing Physic aleksandr: TANA MARTINEZ Physic aleksandr: TANA MARTINEZ Exam Date: 023 [...] ed. IMPRES ROSALVA: Page 1 of 2 [facility] t Name: RUTH THOMAS Access ion #: [id number] Sex: M : 1990 1 [birth year] [...] 4:48 PM (CT) Page 2 of 2 [facility] (Imaging) [address] [place], [address], 06/08/2022 09:03:44 05/26/19 23 05/25/2022 X[facility], [facility] , [facility] [address] [place], [place] [address] [phone] Pati t Name: RUTH THOMAS Access ion #: [id number] Sex: M : 1990 1 [birth year] Locati on: RAD Attend ing Physic aleksandr: TANA MARTINEZ Physic aleksandr: TANA MARTINEZ Exam Date: 023 [...] ed. IMPRES ROSALVA: Page 1 of 2 [facility] t Name: RUTH THOMAS Access ion #: [id number] Sex: M : 1990 1 [birth year] [...] 4:48 PM (CT) Page 2 of [address] (Imaging) [address] [place], [address], 05/30/2022 15:04:29 06/02/19 23 06/01/2022 CT, chest , w/ contr ast [facility] [address] [place] [address] Patien t Name: RUTH THOMAS Access ion #: [id number] Sex: M : 1990 1 1 Locati on: RAD Attend ing Physic aleksandr: TANA MARTINEZ Orderi ng Physic aleksandr: TANA MARTINEZ Exam Date: 023 [...] suspic ious lung Page 1 of 2 [facility] Patien t Name: RUTH THOMAS Access ion #: [id number] Sex: M : 1990 1 1 [...] Dictat ed by: Jj watson MD DD: 4:21 PM (CT) DT: 4:21 PM (CT) Page 2 of 2 [email or web address] [facility] (Imaging) [address] [facility], [place], [address], 06/23/2022 12:33:57 10/06/1910/05/2022 US, abdom en, limit ed No observ ation record ed. [facility] [address], [place], [address], 10/26/2022 15:38:12 Result Notes None recorded. Problems Name Problem SNOMED Code Status Onset Date Resolution Date Notes Provider Name and Address Organization Details Recorded Time Lesion of penis 134168226 Active 2022 Not Available [facility] 3 10:09:01 Weight loss 92994166 Active 2022 Not Available [facility] 3 10:09:01 Standard chest X-ray abnormal 672465477 Active 2022 Not Available [facility] 3 10:09:01 Gastroesophag eal reflux disease without esophagitis 960440111 Active 2022 Not Available [facility] 3 10:09:01 Gastroesophag eal reflux disease 942153558 Active 2022 Not Available [facility] 3 10:09:01 Leukopenia 57002158 Active 2022 Not Available [facility] 3 10:09:01 White blood cell abnormality 568250302 Active 2022 Not Available [facility] 3 10:09:01 Pearly penile papules 931450 Active 2022 Miguel Ángel Mariano MD [address] [facility], [place], [address] , [place] [facility] 3 12:26:05 Dysphagia 95884397 Active 2024 Markell Kerns MD [address] [facility], [place], [address] , [place] [facility] [employer] [facility] [employer] 15:37:49 Problem Notes None recorded. Procedures Surgical History Date Name Laterality Status Provider Name and Address Organization Details Recorded Time Knee Surgery completed Evette Salgado RN [facility] [employer] [facility] 05/25/2022 15:36:33 Imaging Results Imaging Date Name Status LastModified by Organiz ation Details LastModified Time 05/25/2022 XR, chest completed [facility] (Imaging) [address] [place], [address], 06/08/2022 09:03:44 05/25/2022 XR, chest, [address] view [email or web address] (Imaging) [address] [place], [address], 05/30/2022 15:04:29 06/01/2022 CT, chest, w/ contrast completed [email or web address] [facility] (Imaging) [address] [place], [address], 06/23/2022 12:33:57 10/05/2022 US, abdomen, limited completed [facility] [address] [facility] [address], [place], [address], 10/26/2022 15:38:12 Procedure Notes None recorded. Medical Equipment None Reported. Allergies No known drug allergies Medications Name Sig Start Date Stop Date Status Note LastModified by Organization Details LastModified Time amoxicillin 500 mg capsule TAKE 1 CAPSULE BY MOUTH THREE TIMES DAILY FOR 7 DAYS active Not Available Not Available No t Available BD Luer-Ray Syringe 3 mL 25 x 1 1/2 USE TO ADMINISTE R BEFORE-12 INJECTION INTRAMUSC ULARLY ON A MONTHLY BASIS active Not Available Not Available No t Available acetaminoph en 120 mg-codeine 12 mg/5 mL oral solution TAKE 5 ML BY MOUTH EVERY 4 TO 6 HOURS NEEDED 05/02 completed Not Available Not Available Not Available hydrocodone 5 mg-acetamin ophen 325 mg tablet TAKE 1 TABLET BY MOUTH EVERY 6 HOURS NEEDED 05/02 completed Not Available Not Available Not Available sucralfate 100 mg/mL oral suspension 05/01 completed Not Available Not Available Not Available sucralfate 1 gram tablet TAKE 1 TABLET BY MOUTH THREE TIMES DAILY BEFORE MEALS 05/01 completed Not Available Not Available Not Available cyanocobala min (vit B-12) 1,000 mcg tablet TAKE 1 TABLET BY MOUTH DAILY 05/01 completed Not Available Not Available Not Available penicillin V potassium 500 mg tablet TAKE 1 TABLET BY MOUTH FOUR TIMES DAILY FOR 10 DAYS 05/02 completed Not Available Not Available Not Available omeprazole 40 mg capsule,del ayed release active Not Available Not Available Not Available pantoprazol e 40 mg tablet,hector yed release TAKE 1 TABLET BY MOUTH DAILY 05/02 completed Not Available Not Available Not Available cyanocobala min (vit B-12) 1,000 mcg/mL injection solution 05/02 completed Not Available Not Available Not Available lansoprazol e 30 mg capsule,del ayed release 05/02 completed Not Available Not Available Not Available lidocaine HCl 2 % mucosal solution 05/02 completed Not Available Not Available Not Available omeprazole 20 mg capsule,del ayed release TAKE 1 CAPSULE BY MOUTH EVERY DAY 05/02 completed Not Available Not Available Not Available oxycodone-a cetaminophe n 7.5 mg-325 mg tablet TAKE 1 TABLET BY MOUTH EVERY 6 HOURS NEEDED FOR PAIN 05/02 completed Not Available Not Available Not Available naproxen 500 mg tablet TAKE 1 TABLET BY MOUTH TWICE DAILY WITH FOOD 05/02 completed Not Available Not Available Not Available lansoprazol e 30 mg delayed release,dis integrating tablet DISSOLVE ONE TABLET BY MOUTH DAILY 05/02 completed Not Available Not Available Not Available omeprazole 20 mg-sodium bicarbonate 1,680 mg oral packet DISSOLVE 1 PACKET IN LIQUID AND DRINK DAILY BEFORE A MEAL 05/02 completed Not Available Not Available Not Available Vitals Date Recorded Body height Body mass index (BMI) Body weight Body temperature Systolic blood pressure Diastolic blood pressure Provider Name and Address Organization Details Last Updated DateTime 3 187.96 cm 20.5 kg/m2 32643.7 8 g 97.3 [degF] 112 mm[Hg] 86 mm[Hg] Wendy Dow [facility] [employer] [facility] 3 15:40:29 Date Recorded Body height Body mass index (BMI) Body weight Body temperature Heart rate Systolic blood pressure Diastolic blood pressure Provider Name and Address Organization Details Last Updated DateTime 3 187.96 cm 20.3 kg/m2 40333.5 9 g 98 [degF] 71 /min 112 mm[Hg] 70 mm[Hg] Wendy Dow [facility] [employer] [facility] 3 15:26:24 Date Recorded Body height Heart rate Body mass index (BMI) Body weight Body temperature Oxygen saturation Oxygen saturation in Arterial blood by Pulse oximetry Systolic blood pressure Diastolic blood pressure Provider Name and Address Organization Details Last Updated DateTime 3 187.96 cm 65 /min 20.7 kg/m2 44716.3 7 g 98.1 [degF] 99 % 99 % 134 mm[Hg] 92 mm[Hg] Socrates Dawn [facility] [employer] [facility] 3 12:13:51 Date Recorded Body height Body weight Body temperature Heart rate Oxygen saturation Oxygen saturation in Arterial blood by Pulse oximetry Systolic blood pressure Diastolic blood pressure Provider Name and Address Organization Details Last Updated DateTime 3 187.96 cm 13514.9 6 g 98.6 [degF] 76 /min 97 % 97 % 126 mm[Hg] 70 mm[Hg] Estrellita Guy MA [facility] [address] [facility] 3 15:48:28 Date Recorded Body weight Body mass index (BMI) Body height Heart rate Oxygen saturation Oxygen saturation in Arterial blood by Pulse oximetry Systolic blood pressure Diastolic blood pressure Provider Name and Address Organization Details Last Updated DateTime 5 67147.3 3 g 21.3 kg/m2 187.96 cm 75 /min 98 % 98 % 166 mm[Hg] 90 mm[Hg] Joaquín Fung [facility] [employer] [facility] 5 15:19:35 Social History Question Answer Notes LastModified by Organizat ion Details LastModified Time Tobacco Smoking Status Never Smoker Latoya angeles [facility] [employer] [facility] 09/21/2022 12:13:25 Do You Have An Advance [...] Or The Highest Degree You Have Received? [id number] Information not available 09/21/2022 What Is Your Occupation? 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 09/21/2022 [email or web address] Information not available 09/21/2022 Do You Have [...] Anxious, Or Unable To Sleep At Night)? [id number] Information not available 09/21/2022 Do You Use [...] Not availab le 05/25/2022 15:34:55 Mother Anemia [email or web address] Not available 15:16:43 Mother Rheumatism [email or web address] Not availabl e 05/02/2024 15:16:43 Father Hypertensive disorder Not available 15:35:39 Medical History Condition Response HEADACHES/MIGRAINES Y ANXIETY DISORDER Y DEPRESSION (INCLUDING POST ) Y HAVE YOU BEEN HOSPITALIZED OR SEEN IN [facility] ER IN THE PAST YEAR ? Y DIZZINESS Y Past Encounters Encounter ID Performer Location Encounter Start Date Encounter Closed Date Diagnosis/Indication Diagnosis SNOMED-CT Code Diagnosis ICD10 Code Diagnosis Note [id number] Joe Martinez MD [facility] [place] [address] [facility], [place] [address] [place] [address] 05/25/2022 14:56:30 05/25/2022 16:50:30 Lesion of penis 468042226 N48.9 Weight loss 20548682 R63 .4 Screening for cardiovascular system disease 979387210 Z13.6 [id number] Martinez MD [facility] Internal Med [facility] [address] [facility] [address] [place] [address] 1 06/22/2022 15:13:33 06/22/2022 15:53:31 Gastroesophageal reflux disease without esophagitis 148402207 K21.9 [id number] [facility] Internal Med [facility] [address] [facility] [place] [address] 1 07/27/2022 15:18:21 07/27/2022 16:40:34 Leukopenia 78486305 D72.819 Lesion of penis 01900307 0 N48.9 Gastroesop hageal reflux disease 182219453 K21.9 [id number] Miguel Ángel Mariano MD [facility] ENT [place] [address] [place] [id number] [place] [address] 09/21/2022 12:01:12 09/21/2022 12:25:41 Pearly penile papules 085881 D29.0 :Reassuran ce providedFo llow up as needed [id number] Joe Martinez MD [facility] Internal Med [facility] [address] [facility], [facility] [address] [place] [address] 1 10/26/2022 15:34:59 10/26/2022 16:10:50 Gastroesophageal reflux disease 231896765 K21.9 Leukopenia 42695249 D72. 819 [id number] Markell Kerns MD [facility] [facility] [place] [address] [facility], [facility] [address] [place] [address] 1 05/02/2024 15:16:36 05/02/2024 15:54:49 Gastroesophageal reflux disease 524110859 K21.9 Dysphagia 44831028 R13.1 0 Health Concerns Section Related Observation LastModified by Organization Detai ls LastModified Time None Recorded Concern Status LastModified by Organization Details LastModified Time None Recorded Advance Directives Directive N: Payers Encounter Date Sequence Insurance Name Policy Number Policy Brambila Covered Member ID Brambila Member ID Guarantor Name 06/22/2022 1 [employer] Law Jose [id number] [place] 07/27/2022 1 [employer] Law Jose [id number] [place] 09/21/2022 1 [employer] Law Jose [id number] [place] 10/26/2022 1 [employer] Law Jose [id number] [place] 05/02/2024 1 [facility] Law [place] Jose [id number] Law [place] Jose Notes Date Note Type Note Provider Name and Address Organization Details Recorded Time 06/22/2022 text/html his upper GI sym ptoms have gone CT scan of chest was unremarkable white blood cell count was 3 point Joe Martinez MD [address], [address], [place], [address], [employer] 06/22/2022 21:53:44 07/27/2022 text/html has some white l ooking lesions on penisleukopenia on blood work asymptomaticGERD EGD mild gastritis ppi feeling better Joe Martinez MD [address], [place], [address], [employer] 07/30/2022 14:56:57 09/21/2022 text/html :09/21/2022 ORIGI NAL HPI - Patient presents for evaluation of penile lesion -- he reports he has, for a long time, had small pearly papules on the lund of his glans -- PCP sending over for urologic evaluation Miguel Ángel Mariano MD [address], [place], [address], [employer] 09/21/2022 12:26:50 10/26/2022 text/html Leukopenia no si gns or symptoms of infectionGERD stable on omeprazoleDid see Urology for the penile lesion benign Joe Martinez MD [address] [facility] [address], [place], [address], [employer] 10/26/2022 21:01:02 05/02/2024 text/html patient seen 1st time in the office patient is here because of trouble in swallowing according to him he has some problem with the pills that does not go down according to him he had upper endoscopy done to [address] Luevano which we do not have the reports. Patient also has appointment next month on May [address] Royer Rose in [place] as he knew that [facility] he can not get any procedures because he is out of network Markell Kerns MD [address], [facility] [address], [place], [address], [employer] 05/02/2024 15:49:59
--- OUTSIDE RECORDS SUMMARY | 2024-05-31 12:39 | XMS_ITS | Clinical Summary ---
Author Organization [facility] Address [address] 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 Gender Identity Not on file Sexual Orientation [...] Description 06/03/2024 1:15 PM CDT Office Visit [facility] Oncology and Hematology - [place] [address] [facility] [address] [place] [address] Abel Locke MD [address] [facility] [address] [place] [address] Health Maintenance Due Date Last Done Comments INFLUENZA VACCINE (#1) 2023 Preventative Visit- Commercial 03/06/2024 DTAP/TDAP/TD VACCINES (8 - Td or Tdap) 11/10/2027 11/09/2017, 08/24/2006, 10/23/1995, Additional history exists HEPATITIS B VACCINES Completed 06/18/2002, 03/06/2000, 09/13/1996 HPV VACCINES Aged Out No longer eligi ble based on patient's age to complete this topic Insurance [facility] INDIVIDUAL EXCHANGE [id number] [facility] INDIVIDUAL EXCHANGE [id number] Care Teams [place] Supervisor Relationship Specialty Start Date End Date Joe Martinez MD [address] [place] [phone] PCP - General Internal Medicine 09/15/22
--- OUTSIDE RECORDS SUMMARY | 2024-05-31 12:39 | XMS_ITS | Data Portability ---
Author Organization [facility] Address [address] [facility] [address] Care Team Providers Care Paster Supervisor Name Role Phone LORA MARTINEZ Primary [...] months continue current therapy refill his omeprazole Not available 12/17/2023 15:52:44 03/20/2024 03/20/2024 obtain [...] Follow up with me in 4 months [email or web address] Not available 03/20/2024 22:00:54 04/16/2024 04/16/2024 he [...] let us know as soon as possible [email or web address] Not available 04/16/2024 22:13:15 Plan of Treatment Reminders Order Date Submit Date Provider Last Modified By Organization Details Last Modified Time Details Appointments NEW PATIENT 30 2024 01:00P M Luis Jean MD Not available Not available Not available Lab T3, free, serum or plasma 2024 025 [facility], [address], [place], [address], 03/21/2024 13:14:27 TSH + free T4, serum 2024 025 [facility], [address], [place], [address], 03/21/2024 13:14:25 HIV 1 + 2 RNA panel, RENO+probe , serum or plasma 2024 025 [facility], [address], [place], [address], 03/22/2024 19:08:26 CBC w/ auto diff 2024 025 [facility], [address], [place], [address], 03/21/2024 13:14:26 HIV 1 + 2 RNA panel, RENO+probe , serum or plasma 2023 [facility]24 [email or web address], [address], [place], [address], 01/31/2024 12:25:08 RPR (rapid plasma reagin), serum 2023 024 [facility], [address], [place], [address], 12/07/2023 20:10:02 hsv (1+2) igg, serum 2023 024 [facility], [address], [place], [address], 12/07/2023 20:09:55 CT + NG RNA, urine 2023 024 [email or web address], [address], [place], [address], 12/15/2023 12:46:27 vitamin B12 + folate, serum or blood 2023 024 [facility], [address], [place], [address], 12/07/2023 20:09:59 CBC w/ auto diff 2023 024 [facility], [address], [place], [address], 12/07/2023 20:10:00 CMP, serum or plasma 2023 024 [facility], [address], [place], [address], 12/07/2023 20:09:58 T3, free, serum or plasma 2023 024 [facility], [address], [place], [address], 12/07/2023 20:10:03 TSH + free T4, serum 2023 024 [facility], [address], [place], [address], 12/07/2023 20:09:57 CBC w/ auto diff 2023 024 [facility], [address], [place], [address], 12/06/2023 09:17:16 CMP, serum or plasma 2023 024 [facility], [address] [address], [place], [address], 12/06/2023 09:17:15 Referral None recorded. Procedures None recorded. Surgeries None recorded. Imaging None recorded. Medication Orders lansopraz ole 30 mg capsule,d elayed release [address] [id number], [address], [place], [place], [id number], 04/16/2024 17:51:56 omeprazol e 20 mg capsule,d elayed release [address] [id number], [address], [place], [place], [id number], 03/20/2024 17:26:38 Debrox 6.5 % ear drops 2023 024 [id number], [address], [place], [place], [id number], 12/05/2023 15:06:38 Patient TargetsNo targets recorded. Patient InstructionsNo instructions recorded. Reason for Referral None Reported. Results Created Date Observation Date Name Description Value Unit Range Abnormal Flag Note LastModifiedBy Organization Detail LastModifiedTime 12/05/1912/06/2023 COMP. METAB OLIC PANEL (14) glucose 70 mg/dL 70-99 Not Available [facility] ([facility]) [address] [facility] [address], [place], [address], 12/06/2023 09:17:15 12/05/19 24 12/06/2023 COMP. METAB OLIC PANEL (14) BUN 12 mg/dL 6-20 Not Available [facility] ([facility]) [address] [facility] [address], [place], [address], 12/06/2023 09:17:15 12/05/19 24 12/06/2023 COMP. METAB OLIC PANEL (14) creatinine 1.11 mg/dL 0.76-1 .27 Not Available [facility] ([facility]) [address] [facility] [address], [place], [address], 12/06/2023 09:17:15 12/05/19 24 12/06/2023 COMP. METAB OLIC PANEL (14) eGFR 90 mL/mi n/1.7 3 >59 Not Available [facility] ([facility]) [address] [facility] [address], [place], [address], 12/06/2023 09:17:15 12/05/1912/06/2023 COMP. METAB OLIC PANEL (14) BUN/creatini ne ratio 11 9-20 Not Available [facility] ([facility]) [address] [facility] [address], [place], [address], 12/06/2023 09:17:15 12/05/19 24 12/06/2023 COMP. METAB OLIC PANEL (14) sodium 141 mmol/ L 134-14 4 Not Available [facility] ([facility]) [address] [place], [address], 12/06/2023 09:17:15 12/05/19 24 12/06/2023 COMP. METAB OLIC PANEL (14) potassium 4.2 mmol/ L 3.5-5. 2 Not Available [facility] ([facility]) [address] [facility] [address], [place], [address], 12/06/2023 09:17:15 12/05/19 24 12/06/2023 COMP. METAB OLIC PANEL (14) chloride 100 mmol/ L 96-106 Not Available [facility] ([facility]) [address] [facility], [place], [address], 12/06/2023 09:17:15 12/05/19 24 12/06/2023 COMP. METAB OLIC PANEL (14) carbon dioxide, total 25 mmol/ L 20-29 Not Available [facility] ([facility]) [address] [facility], [place], [address], 12/06/2023 09:17:15 12/05/19 24 12/06/2023 COMP. METAB OLIC PANEL (14) calcium 9.7 mg/dL 8.7-10 .2 Not Available [facility] ([facility]) [address] [facility], [place], [address], 12/06/2023 09:17:15 12/05/19 24 12/06/2023 COMP. METAB OLIC PANEL (14) protein, total 7.3 g/dL 6.0-8. 5 Not Available [facility] ([facility]) [address] [facility], [place], [address], 12/06/2023 09:17:15 12/05/19 24 12/06/2023 COMP. METAB OLIC PANEL (14) albumin 4.7 g/dL 4.1-5. 1 Not Available [facility] ([facility]) [address] [facility], [place], [address], 12/06/2023 09:17:15 12/05/1912/06/2023 COMP. METAB OLIC PANEL (14) globulin, total 2.6 g/dL 1.5-4. 5 Not Available [facility] ([facility]) [address] [facility], [place], [address], 12/06/2023 09:17:15 12/05/19 24 12/06/2023 COMP. METAB OLIC PANEL (14) bilirubin, total 0.3 mg/dL 0.0-1. 2 Not Available [facility] ([facility]) [address] [facility] [place], [address], 12/06/2023 09:17:15 12/05/19 24 12/06/2023 COMP. METAB OLIC PANEL (14) alkaline phosphatase 76 IU/L 44-121 Not Available [facility]) [address] [facility] [address], [place], [address], 12/06/2023 09:17:15 12/05/1912/06/2023 COMP. METAB OLIC PANEL (14) AST (SGOT) 15 IU/L 0-40 Not Available [facility] ([facility]) [address] [facility], [place], [address], 12/06/2023 09:17:15 12/05/1912/06/2023 COMP. METAB OLIC PANEL (14) ALT (SGPT) 7 IU/L 0-44 Not Available [facility] ([facility]) [address] [facility] [address], [place], [address], 12/06/2023 09:17:15 12/05/19 24 12/06/2023 CBC WITH DIFFE RENTI AL/PL ATELE T WBC 3.8 x10e3 /uL 3.4-10 .8 Not Available [facility] ([facility]) [address] [facility] [address], [place], [address], 12/06/2023 09:17:16 12/05/1912/06/2023 CBC WITH DIFFE RENTI AL/PL ATELE T RBC 5.41 x10e6 /uL 4.14-5 .80 Not Available [facility] ([facility]) [address] [facility] [address], [place], [address], 12/06/2023 09:17:16 12/05/1912/06/2023 CBC WITH DIFFE RENTI AL/PL ATELE T hemoglobin 14.2 g/dL 13.0-1 7.7 Not Available [facility] ([facility]) [address] [facility], [place], [address], 12/06/2023 09:17:16 12/05/19 24 12/06/2023 CBC WITH DIFFE RENTI AL/PL ATELE T hematocrit 44.9 % 37.5-5 1.0 Not Available [facility] ([facility]) [address] [facility], [place], [address], 12/06/2023 09:17:16 12/05/1912/06/2023 CBC WITH DIFFE RENTI AL/PL ATELE T MCV 83 fL 79-97 Not Available [facility] ([facility]) [address] [facility], [place], [address], 12/06/2023 09:17:16 12/05/1912/06/2023 CBC WITH DIFFE RENTI AL/PL ATELE T MCH 26.2 pg 26.6-3 3.0 below low normal Not Available [facility] ([facility]) [address] [facility] [address], [place], [address], 12/06/2023 09:17:16 12/05/19 24 12/06/2023 CBC WITH DIFFE RENTI AL/PL ATELE T MCHC 31.6 g/dL 31.5-3 5.7 Not Available [facility] ([facility]) [address] [facility], [place], [address], 12/06/2023 09:17:16 12/05/1912/06/2023 CBC WITH DIFFE RENTI AL/PL ATELE T RDW 12.8 % 11.6-1 5.4 Not Available [facility] ([facility]) [address] [facility] [address], [place], [address], 12/06/2023 09:17:16 12/05/1912/06/2023 CBC WITH DIFFE RENTI AL/PL ATELE T platelets 317 x10e3 /uL 150-45 0 Not Available [facility] ([facility]) [address] [place], [address], 12/06/2023 09:17:16 12/05/19 24 12/06/2023 CBC WITH DIFFE RENTI AL/PL ATELE T neutrophils 30 % notest ab. Not Available [facility] ([facility]) [address] [place], [address], 12/06/2023 09:17:16 12/05/1912/06/2023 CBC WITH DIFFE RENTI AL/PL ATELE T lymphs 58 % notest ab. Not Available [facility] ([facility]) [address] [facility], [place], [address], 12/06/2023 09:17:16 12/05/1912/06/2023 CBC WITH DIFFE RENTI AL/PL ATELE T monocytes 8 % notest ab. Not Available [facility] ([facility]) [address] [facility], [place], [address], 12/06/2023 09:17:16 12/05/1912/06/2023 CBC WITH DIFFE RENTI AL/PL ATELE T eos 3 % notest ab. Not Available [facility] ([facility]) [address] [facility], [place], [address], 12/06/2023 09:17:16 12/05/1912/06/2023 CBC WITH DIFFE RENTI AL/PL ATELE T basos 1 % notest ab. Not Available [facility] ([facility]) [address] [facility], [place], [address], 12/06/2023 09:17:16 12/05/1912/06/2023 CBC WITH DIFFE RENTI AL/PL ATELE T neutrophils (absolute) 1.1 x10e3 /uL 1.4-7. 0 below low normal Not Available [facility] ([facility]) [address] [facility], [place], [address], 12/06/2023 09:17:16 12/05/1912/06/2023 CBC WITH DIFFE RENTI AL/PL ATELE T lymphs (absolute) 2.2 x10e3 /uL 0.7-3. 1 Not Available [facility] ([facility]) [address] [facility], [place], [address], 12/06/2023 09:17:16 12/05/19 24 12/06/2023 CBC WITH DIFFE RENTI AL/PL ATELE T monocytes(ab solute) 0.3 x10e3 /uL 0.1-0. 9 Not Available [facility] ([facility]) [address] [facility], [place], [address], 12/06/2023 09:17:16 12/05/1912/06/2023 CBC WITH DIFFE RENTI AL/PL ATELE T eos (absolute) 0.1 x10e3 /uL 0.0-0. 4 Not Available [facility] ([facility]) [address] [facility] [address], [place], [address], 12/06/2023 09:17:16 12/05/19 24 12/06/2023 CBC WITH DIFFE RENTI AL/PL ATELE T baso (absolute) 0.0 x10e3 /uL 0.0-0. 2 Not Available [facility] ([facility]) [address] [facility] [address], [place], [address], 12/06/2023 09:17:16 12/05/1912/06/2023 CBC WITH DIFFE RENTI AL/PL ATELE T immature granulocytes 0 % notest ab. Not Available [facility] ([facility]) [address] [facility], [place], [address], 12/06/2023 09:17:16 12/05/1912/06/2023 CBC WITH DIFFE RENTI AL/PL ATELE T immature grans (abs) 0.0 x10e3 /uL 0.0-0. 1 Not Available [facility] ([facility]) [address] [facility] [address], [place], [address], 12/06/2023 09:17:16 12/05/19 24 12/06/2023 HSV 1 AND 2 AB, IGG hsv 1 IgG, type spec <0.91 index 0.00-0 .90 Negat roberto carlos <0.91 Equiv ocal 0.91 - 1.09 Posit roberto carlos >1.09 Note: Negat roberto carlos indic ates no antib odies detec myrna to HSV-1 . Equiv ocal may sugge st early infec tion. If clini claudia appro priat e, retes t at later date. Posit roberto carlos indic ates antib odies detec myrna to HSV-1 . Eff ectiv e Octob er 2023 the refer ence inter glenroy will be clemens ing to: Non React roberto carlos. Not Available [facility] ([facility]) [address], [place], [address], 12/07/2023 20:09:55 12/05/1912/06/2023 HSV 1 AND 2 AB, IGG [...] or testi ng by a diffe rent metho d, may be indic ated in some setti [...] Non React roberto carlos. Not Available [facility] ([facility]) [address] [place], [address], 12/07/2023 20:09:55 12/05/19 24 12/07/2023 CT NG M GENIT ALIUM RENO, URINE mycoplasma genitalium RENO Negati ve negati ve Not Available [facility] ([facility]) [address] [place], [address], 12/07/2023 20:09:56 12/05/1912/07/2023 CT NG M GENIT ALIUM RENO, URINE chlamydia trachomatis, RENO Negati ve negati ve Not Available [facility] ([facility]) [address] [facility], [place], [address], 12/07/2023 20:09:56 12/05/1912/07/2023 CT NG M GENIT ALIUM RENO, URINE neisseria gonorrhoeae, RENO Negati ve negati ve Not Available [facility] ([facility]) [address] [place], [address], 12/07/2023 20:09:56 12/05/19 24 12/06/2023 TSH+F REE T4 TSH 4.820 uIU/m L 0.450- 4.500 above high normal Not Available [facility] ([facility]) [address] [place], [address], 12/07/2023 20:09:57 12/05/1912/06/2023 TSH+F REE T4 T4,free(dire ct) 1.43 NG/dL 0.82-1 .77 Not Available [facility] ([facility]) [address] [place], [address], 12/07/2023 20:09:57 12/05/19 24 12/06/2023 COMP. METAB OLIC PANEL (14) glucose 72 mg/dL 70-99 Not Available [facility] ([facility]) [address] [facility] [place], [address], 12/07/2023 20:09:58 12/05/19 24 12/06/2023 COMP. METAB OLIC PANEL (14) BUN 13 mg/dL 6-20 Not Available [facility] ([facility]) [address] [facility] [place], [address], 12/07/2023 20:09:58 12/05/19 24 12/06/2023 COMP. METAB OLIC PANEL (14) creatinine 1.10 mg/dL 0.76-1 .27 Not Available [facility] ([facility]) [address] [facility] [place], [address], 12/07/2023 20:09:58 12/05/19 24 12/06/2023 COMP. METAB OLIC PANEL (14) eGFR 91 mL/mi n/1.7 3 >59 Not Available [facility] ([facility]) [address] [facility] [place], [address], 12/07/2023 20:09:58 12/05/19 24 12/06/2023 COMP. METAB OLIC PANEL (14) BUN/creatini ne ratio 12 9-20 Not Available [facility] ([facility]) [address] [facility] [place], [address], 12/07/2023 20:09:58 12/05/19 24 12/06/2023 COMP. METAB OLIC PANEL (14) sodium 141 mmol/ L 134-14 4 Not Available [facility] ([facility]) [address] [facility] [place], [address], 12/07/2023 20:09:58 12/05/19 24 12/06/2023 COMP. METAB OLIC PANEL (14) potassium 4.5 mmol/ L 3.5-5. 2 Not Available [facility] ([facility]) [address] [facility] [place], [address], 12/07/2023 20:09:58 12/05/19 24 12/06/2023 COMP. METAB OLIC PANEL (14) chloride 103 mmol/ L 96-106 Not Available [facility] ([facility]) [address] [facility], [place], [address], 12/07/2023 20:09:58 12/05/19 24 12/06/2023 COMP. METAB OLIC PANEL (14) carbon dioxide, total 24 mmol/ L 20-29 Not Available [facility] ([facility]) [address] [facility], [place], [address], 12/07/2023 20:09:58 12/05/1912/06/2023 COMP. METAB OLIC PANEL (14) calcium 9.5 mg/dL 8.7-10 .2 Not Available [facility] ([facility]) [address] [facility], [place], [address], 12/07/2023 20:09:58 12/05/1912/06/2023 COMP. METAB OLIC PANEL (14) protein, total 6.9 g/dL 6.0-8. 5 Not Available [facility] ([facility]) [address] [facility] [address], [place], [address], 12/07/2023 20:09:58 12/05/19 24 12/06/2023 COMP. METAB OLIC PANEL (14) albumin 4.6 g/dL 4.1-5. 1 Not Available [facility] ([facility]) [address] [facility], [place], [address], 12/07/2023 20:09:58 12/05/19 24 12/06/2023 COMP. METAB OLIC PANEL (14) globulin, total 2.3 g/dL 1.5-4. 5 Not Available [facility] ([facility]) [address] [facility] [address], [place], [address], 12/07/2023 20:09:58 12/05/19 24 12/06/2023 COMP. METAB OLIC PANEL (14) bilirubin, total 0.3 mg/dL 0.0-1. 2 Not Available [facility] ([facility]) [address] [facility] [place], [address], 12/07/2023 20:09:58 12/05/19 24 12/06/2023 COMP. METAB OLIC PANEL (14) alkaline phosphatase 77 IU/L 44-121 Not Available [facility] ([facility]) [address] [facility], [place], [address], 12/07/2023 20:09:58 12/05/19 24 12/06/2023 COMP. METAB OLIC PANEL (14) AST (SGOT) 9 IU/L 0-40 Not Available [facility] ([facility]) [address] [facility], [place], [address], 12/07/2023 20:09:58 12/05/19 24 12/06/2023 COMP. METAB OLIC PANEL (14) ALT (SGPT) 5 IU/L 0-44 Not Available [facility] ([facility]) [address] [facility], [place], [address], 12/07/2023 20:09:58 12/05/19 24 12/06/2023 VITAM IN B12 AND FOLAT E vitamin B12 597 pg/mL 232-12 45 Not Available [facility] ([facility]) [address] [facility], [place], [address], 12/07/2023 20:09:59 12/05/19 24 12/06/2023 VITAM IN B12 AND FOLAT E folate (folic acid), serum 7.7 NG/mL >3.0 A serum folat e amy ntrat ion of less than 3.1 ng/mL is consi dered to repre sent clini frandy defic iency . Not Available [facility] ([facility]) [address] [facility], [place], [address], 12/07/2023 20:09:59 12/05/19 24 12/06/2023 CBC WITH DIFFE RENTI AL/PL ATELE T WBC 3.6 x10e3 /uL 3.4-10 .8 Not Available [facility] ([facility]) [address] [facility], [place], [address], 12/07/2023 20:10:00 12/05/19 24 12/06/2023 CBC WITH DIFFE RENTI AL/PL ATELE T RBC 5.51 x10e6 /uL 4.14-5 .80 Polyc hroma edy prese nt Ovalo cytes prese nt. Not Available [facility] ([facility]) [address] [facility], [place], [address], 12/07/2023 20:10:00 12/05/19 24 12/06/2023 CBC WITH DIFFE RENTI AL/PL ATELE T hemoglobin 14.5 g/dL 13.0-1 7.7 Not Available [facility] ([facility]) [address] [facility], [place], [address], 12/07/2023 20:10:00 12/05/19 24 12/06/2023 CBC WITH DIFFE RENTI AL/PL ATELE T hematocrit 46.6 % 37.5-5 1.0 Not Available [facility] ([facility]) [address] [facility], [place], [address], 12/07/2023 20:10:00 12/05/19 24 12/06/2023 CBC WITH DIFFE RENTI AL/PL ATELE T MCV 85 fL 79-97 Not Available [facility] ([facility]) [address] [place], [address], 12/07/2023 20:10:00 12/05/19 24 12/06/2023 CBC WITH DIFFE RENTI AL/PL ATELE T MCH 26.3 pg 26.6-3 3.0 below low normal Not Available [facility] ([facility]) [address] [place], [address], 12/07/2023 20:10:00 12/05/19 24 12/06/2023 CBC WITH DIFFE RENTI AL/PL ATELE T MCHC 31.1 g/dL 31.5-3 5.7 below low normal Not Available [facility] ([facility]) [address] [facility], [place], [address], 12/07/2023 20:10:00 12/05/19 24 12/06/2023 CBC WITH DIFFE RENTI AL/PL ATELE T RDW 12.6 % 11.6-1 5.4 Not Available [facility] ([facility]) [address] [place], [address], 12/07/2023 20:10:00 12/05/19 24 12/06/2023 CBC WITH DIFFE RENTI AL/PL ATELE T platelets 316 x10e3 /uL 150-45 0 Not Available [facility] ([facility]) [address] [facility], [place], [address], 12/07/2023 20:10:00 12/05/19 24 12/06/2023 CBC WITH DIFFE RENTI AL/PL ATELE T neutrophils 29 % notest ab. Not Available [facility] ([facility]) [address] [place], [address], 12/07/2023 20:10:00 12/05/19 24 12/06/2023 CBC WITH DIFFE RENTI AL/PL ATELE T lymphs 59 % notest ab. Lymph ocyte s appea r react roberto carlos. Not Available [facility] ([facility]) [address] [place], [address], 12/07/2023 20:10:00 12/05/19 24 12/06/2023 CBC WITH DIFFE RENTI AL/PL ATELE T monocytes 8 % notest ab. Not Available [facility] ([facility]) [address] [place], [address], 12/07/2023 20:10:00 12/05/19 24 12/06/2023 CBC WITH DIFFE RENTI AL/PL ATELE T eos 3 % notest ab. Not Available [facility] ([facility]) [address] [facility], [place], [address], 12/07/2023 20:10:00 12/05/19 24 12/06/2023 CBC WITH DIFFE RENTI AL/PL ATELE T basos 1 % notest ab. Not Available [facility] ([facility]) [address] [place], [address], 12/07/2023 20:10:00 12/05/19 24 12/06/2023 CBC WITH DIFFE RENTI AL/PL ATELE T neutrophils (absolute) 1.0 x10e3 /uL 1.4-7. 0 below low normal Not Available [facility] ([facility]) [address] [place], [address], 12/07/2023 20:10:00 12/05/19 24 12/06/2023 CBC WITH DIFFE RENTI AL/PL ATELE T lymphs (absolute) 2.1 x10e3 /uL 0.7-3. 1 Not Available [facility] ([facility]) [address] [place], [address], 12/07/2023 20:10:00 12/05/19 24 12/06/2023 CBC WITH DIFFE RENTI AL/PL ATELE T monocytes(ab solute) 0.3 x10e3 /uL 0.1-0. 9 Not Available [facility] ([facility]) [address] [place], [address], 12/07/2023 20:10:00 12/05/19 24 12/06/2023 CBC WITH DIFFE RENTI AL/PL ATELE T eos (absolute) 0.1 x10e3 /uL 0.0-0. 4 Not Available [facility] ([facility]) [address] [place], [address], 12/07/2023 20:10:00 12/05/19 24 12/06/2023 CBC WITH DIFFE RENTI AL/PL ATELE T baso (absolute) 0.0 x10e3 /uL 0.0-0. 2 Not Available [facility] ([facility]) [address] [facility], [place], [address], 12/07/2023 20:10:00 12/05/19 24 12/06/2023 CBC WITH DIFFE RENTI AL/PL ATELE T immature granulocytes 0 % notest ab. Not Available [facility] ([facility]) [address] [facility], [place], [address], 12/07/2023 20:10:00 12/05/19 24 12/06/2023 CBC WITH DIFFE RENTI AL/PL ATELE T immature grans (abs) 0.0 x10e3 /uL 0.0-0. 1 Not Available [facility] ([facility]) [address] [facility], [place], [address], 12/07/2023 20:10:00 12/05/19 24 12/06/2023 CBC WITH DIFFE RENTI AL/PL ATELE T hematology comments: NOTE: Verif ied by al butleri natrandall n. Not Available [facility] ([facility]) [address] [facility], [place], [address], 12/07/2023 20:10:00 12/05/19 24 12/06/2023 RPR RPR NON REACTI VE nonrea ctive Not Available [facility] ([facility]) [address] [facility] [address], [place], [address], 12/07/2023 20:10:02 12/05/19 24 12/06/2023 TRIIO DOTHY TAHIRA E (T3), FREE triiodothyro nine (T3), free 3.7 pg/mL 2.0-4. 4 Not Available [facility] ([facility]) [address] [facility] [address], [place], [address], 12/07/2023 20:10:03 03/20/1903/21/2024 TSH+F REE T4 TSH 1.530 uIU/m L 0.450- 4.500 Not Available [facility] ([facility]) [address] [facility] [address], [place], [address], 03/21/2024 13:14:25 03/20/19 25 03/21/2024 TSH+F REE T4 T4,free(dire ct) 1.16 NG/dL 0.82-1 .77 Not Available [facility] ([facility]) [address] [facility] [address], [place], [address], 03/21/2024 13:14:25 03/20/19 25 03/21/2024 CBC WITH DIFFE RENTI AL/PL ATELE T WBC 2.7 x10e3 /uL 3.4-10 .8 below low normal Not Available [facility] ([facility]) [address] [place], [address], 03/21/2024 13:14:26 03/20/19 25 03/21/2024 CBC WITH DIFFE RENTI AL/PL ATELE T RBC 5.29 x10e6 /uL 4.14-5 .80 Not Available [facility] ([facility]) [address] [place], [address], 03/21/2024 13:14:26 03/20/19 25 03/21/2024 CBC WITH DIFFE RENTI AL/PL ATELE T hemoglobin 13.9 g/dL 13.0-1 7.7 Not Available [facility] ([facility]) [address] [place], [address], 03/21/2024 13:14:26 03/20/19 25 03/21/2024 CBC WITH DIFFE RENTI AL/PL ATELE T hematocrit 43.7 % 37.5-5 1.0 Not Available [facility] ([facility]) [address] [facility], [place], [address], 03/21/2024 13:14:26 03/20/19 25 03/21/2024 CBC WITH DIFFE RENTI AL/PL ATELE T MCV 83 fL 79-97 Not Available [facility] ([facility]) [address] [facility], [place], [address], 03/21/2024 13:14:26 03/20/19 25 03/21/2024 CBC WITH DIFFE RENTI AL/PL ATELE T MCH 26.3 pg 26.6-3 3.0 below low normal Not Available [facility] ([facility]) [address] [facility], [place], [address], 03/21/2024 13:14:26 03/20/19 25 03/21/2024 CBC WITH DIFFE RENTI AL/PL ATELE T MCHC 31.8 g/dL 31.5-3 5.7 Not Available [facility] ([facility]) [address] [facility], [place], [address], 03/21/2024 13:14:26 03/20/19 25 03/21/2024 CBC WITH DIFFE RENTI AL/PL ATELE T RDW 12.6 % 11.6-1 5.4 Not Available [facility] ([facility]) [address] [facility], [place], [address], 03/21/2024 13:14:26 03/20/19 25 03/21/2024 CBC WITH DIFFE RENTI AL/PL ATELE T platelets 295 x10e3 /uL 150-45 0 Not Available [facility] ([facility]) [address] [facility], [place], [address], 03/21/2024 13:14:26 03/20/19 25 03/21/2024 CBC WITH DIFFE RENTI AL/PL ATELE T neutrophils 39 % notest ab. Not Available [facility] ([facility]) [address] [facility], [place], [address], 03/21/2024 13:14:26 03/20/19 25 03/21/2024 CBC WITH DIFFE RENTI AL/PL ATELE T lymphs 48 % notest ab. Not Available [facility] ([facility]) [address] [facility], [place], [address], 03/21/2024 13:14:26 03/20/19 25 03/21/2024 CBC WITH DIFFE RENTI AL/PL ATELE T monocytes 10 % notest ab. Not Available [facility] ([facility]) [address] [facility], [place], [address], 03/21/2024 13:14:26 03/20/19 25 03/21/2024 CBC WITH DIFFE RENTI AL/PL ATELE T eos 2 % notest ab. Not Available [facility] ([facility]) [address] [facility], [place], [address], 03/21/2024 13:14:26 03/20/19 25 03/21/2024 CBC WITH DIFFE RENTI AL/PL ATELE T basos 1 % notest ab. Not Available [facility] ([facility]) [address] [facility], [place], [address], 03/21/2024 13:14:26 03/20/19 25 03/21/2024 CBC WITH DIFFE RENTI AL/PL ATELE T neutrophils (absolute) 1.0 x10e3 /uL 1.4-7. 0 below low normal Not Available [facility] ([facility]) [address] [place], [address], 03/21/2024 13:14:26 03/20/19 25 03/21/2024 CBC WITH DIFFE RENTI AL/PL ATELE T lymphs (absolute) 1.3 x10e3 /uL 0.7-3. 1 Not Available [facility] ([facility]) [address] [facility] [place], [address], 03/21/2024 13:14:26 03/20/19 25 03/21/2024 CBC WITH DIFFE RENTI AL/PL ATELE T monocytes(ab solute) 0.3 x10e3 /uL 0.1-0. 9 Not Available [facility] ([facility]) [address] [facility], [place], [address], 03/21/2024 13:14:26 03/20/19 25 03/21/2024 CBC WITH DIFFE RENTI AL/PL ATELE T eos (absolute) 0.1 x10e3 /uL 0.0-0. 4 Not Available [facility] ([facility]) [address] [facility], [place], [address], 03/21/2024 13:14:26 03/20/19 25 03/21/2024 CBC WITH DIFFE RENTI AL/PL ATELE T baso (absolute) 0.0 x10e3 /uL 0.0-0. 2 Not Available [facility] ([facility]) [address] [facility], [place], [address], 03/21/2024 13:14:26 03/20/19 25 03/21/2024 CBC WITH DIFFE RENTI AL/PL ATELE T immature granulocytes 0 % notest ab. Not Available [facility] ([facility]) [address] [facility], [place], [address], 03/21/2024 13:14:26 03/20/19 25 03/21/2024 CBC WITH DIFFE RENTI AL/PL ATELE T immature grans (abs) 0.0 x10e3 /uL 0.0-0. 1 Not Available [facility] ([facility]) [address] [facility], [place], [address], 03/21/2024 13:14:26 03/20/19 25 03/21/2024 CBC WITH DIFFE RENTI AL/PL ATELE T hematology comments: NOTE: Verif ied by micro kacie baez n. Not Available [facility] ([facility]) [address] [place], [address], 03/21/2024 13:14:26 03/20/19 25 03/21/2024 TRIIO DOTHY TAHIRA E (T3), FREE triiodothyro nine (T3), free 2.8 pg/mL 2.0-4. 4 Not Available [facility] ([facility]) [address] [place], [address], 03/21/2024 13:14:27 03/20/19 25 03/22/2024 HIV-1 /HIV- 2 QUALI TATIV E RNA HIV-1 RNA NON REACTI VE nonrea ctive Not Available [facility] ([facility]) [address] [place], [address], 03/22/2024 19:08:26 03/20/19 25 03/22/2024 HIV-1 /HIV- 2 QUALI TATIV E RNA HIV-2 RNA NON REACTI VE nonrea ctive Not Available [facility] ([facility]) [address] [place], [address], 03/22/2024 19:08:26 05/01/19 25 05/01/2024 Influ juliano virus A and B and SARS- CoV-2 (COVI D-19) and SARS- relat ed CoV RNA panel - Respi rator y syste m speci men by RENO with probe detec tion sars-cov-2 (covid-19) RNA [presence] in specimen by RENO with probe detection Negati ve normal Not Available Not Available 09:16:57 05/01/19 25 05/01/2024 Influ juliano virus A and B and SARS- CoV-2 (COVI D-19) and SARS- relat ed CoV RNA panel - Respi rator y syste m speci men by RENO with probe detec tion influenza virus A RNA [presence] in respiratory system specimen by RENO with probe detection Negati ve normal Not Available Not Available 09:16:57 05/01/19 25 05/01/2024 Influ juliano virus A and B and SARS- CoV-2 (COVI D-19) and SARS- relat ed CoV RNA panel - Respi rator y syste m speci men by RENO with probe detec tion influenza virus B RNA [presence] in respiratory system specimen by RENO with probe detection Negati ve normal Not Available Not Available 09:16:57 Result Notes None recorded. Problems Name Problem SNOMED Code Status Onset Date Resolution Date Notes Provider Name and Address Organization Details Recorded Time Anemia 159487173 Active 2023 Yeimi Hernández [place] null, [place] [facility] 4 16:06:11 Exposure to blood and/or body fluid Active 2023 Yeimi Hernández [place], [place] [facility] 4 16:06:12 Fatigue 21969045 Active 2023 Yeimi Hernández [place] [facility] 4 16:09:20 Gastroesophage al reflux disease without esophagitis 787397197 Active 2024 Yeimi Hernández [place], [place] [facility] 5 16:37:16 Leukopenia 51525179 Active 2024 Lora Martinez MD Attn: Paras keen[address] [place], [address] [place] - [facility] 5 22:13:35 Problem Notes None recorded. Procedures Surgical History Date Name Laterality Status Provider Name and Address Organization Details Recorded Time endoscopy completed Shonna Price [place] - [facility] 05/15/2023 17:06:42 Imaging Results None recorded. Procedure [...] Available omeprazole 40 mg capsule,del ayed release TAKE 1 CAPSULE BY MOUTH TWICE DAILY active Not Available Not Available No t Available pantoprazol e 40 mg tablet,hector yed [...] Not Available Not Available No t Available oxycodone-a cetaminophe n 7.5 mg-325 mg tablet TAKE 1 TABLET BY MOUTH EVERY 6 HOURS NEEDED FOR PAIN active Not Available Not Available No t [...] Address Organization Details Last Updated DateTime 4 14203.9 3 g 21.4 kg/m2 187.96 cm 72 /min 98 % 98 % 120 mm[Hg] 62 mm[Hg] Shonna Price MA [facility] 4 17:11:43 Date Recorded Body height Body mass index (BMI) Body weight Respiratory rate Heart rate Oxygen saturation Oxygen saturation in Arterial blood by Pulse oximetry Systolic blood pressure Diastolic blood pressure Provider Name and Address Organization Details Last Updated DateTime 4 187.96 cm 21.2 kg/m2 47828.7 4 g 18 /min 78 /min 97 % 97 % 128 mm[Hg] 80 mm[Hg] Krystal Stewart MA [facility] 4 15:04:21 Date Recorded Body height Body mass index (BMI) Body weight Heart rate Oxygen saturation Oxygen saturation in Arterial blood by Pulse oximetry Systolic blood pressure Diastolic blood pressure Provider Name and Address Organization Details Last Updated DateTime 5 187.96 cm 20.9 kg/m2 52156.8 4 g 80 /min 98 % 98 % 116 mm[Hg] 68 mm[Hg] Meli Bradshaw MA [facility] 5 16:23:30 Date Recorded Body height Body mass index (BMI) Body weight Heart rate Oxygen saturation Oxygen saturation in Arterial blood by Pulse oximetry Systolic blood pressure Diastolic blood pressure Provider Name and Address Organization Details Last Updated DateTime 5 187.96 cm 20.4 kg/m2 69026.4 7 g 74 /min 98 % 98 % 132 mm[Hg] 70 mm[Hg] Meli Bradshaw MA [facility] 5 15:56:11 Social History Question Answer Notes LastModified by Organizat ion Details LastModified Time Tobacco Smoking Status Never Smoker Shonna Price MA [facility] 05/15/2023 17:05:04 What Is Your Level Of [...] Or The Highest Degree You Have Received? [id number] Information not available 05/15/2023 What Is Your [...] Anxious, Or Unable To Sleep At Night)? [id number] Information not available 05/15/2023 Do You Use [...] Skin Problems N Anemia N Heart Attack (SC) N Anxiety Disorder N Diabetes N Muscle, Joint, or Bone Problems N Seizures/Epilepsy N Acid Reflux (GERD) Y Cancer N Stroke N Asthma Y Allergies N High Cholesterol N Hepatitis N Liver Disease N Headaches Y Heart Failure N Osteoporosis N Past Encounters Encounter ID Performer Location Encounter Start Date Encounter Closed Date Diagnosis/Indication Diagnosis SNOMED-CT Code Diagnosis ICD10 Code Diagnosis Note [id number] MD Laura Salinas (Adult Med) [address] [place] [address] 0 05/15/2023 16:18:50 05/15/2023 17:41:40 Impacted cerumen of bilateral ears 6289605667 779704 H61.23 Gastroesop hageal reflux disease without esophagitis 014234046 K21.9 Leukopenia 99258889 D72. 692 [id number] MD Laura Salinas (Adult Med) [address] [place] [address] 0 12/05/2023 14:52:53 12/05/2023 16:02:46 Anemia 663981334 D64.9 Exposure t o blood and/or body fluid 500212245 Z77.21 Fatigue 71671940 R53.83 Gastroesop hageal reflux disease without esophagitis 979070168 K21.9 [id number] MD Laura Salinas (Adult Med) [address] [place] [address] 0 03/20/2024 16:11:55 03/20/2024 17:10:05 Body mass index 20-24 - normal 280531190 Z68.20 Exposure t o blood and/or body fluid 031197952 Z77.21 Subclinica l hypothyroidism 82342762 E02 Anemia 429070119 D64.9 Gastroesop hageal reflux disease 337897896 K21.9 Serum rolando min B12 below reference range 312780541 R79.89 [id number] MD Laura Salinas (Adult Med) [address] [place] [address] 0 04/16/2024 15:38:27 04/16/2024 16:47:05 Body mass index 20-24 - normal 484992042 Z68.20 Gastroesop hageal reflux disease without esophagitis 574332971 K21.9 Anemia 000815418 D64.9 Leukopenia 52309608 D72. 819 Health Concerns Section Related Observation LastModified by Organization Detai ls LastModified Time None Recorded Concern Status LastModified by Organization Details LastModified Time None Recorded Advance Directives Directive None Recorded Payers Encounter Date Sequence Insurance Name Policy Number Policy Brambila Covered Member ID Brambila Member ID Guarantor Name 05/15/2023 1 [employer] (PPO) [id number] Law Lima Jose [id number] Law Lima Jose 12/05/2023 1 *SELF PAY* Ma lcjose daniel Lima Jose 03/20/2024 1 [employer] - EXCHANGE PLAN (HMO) BETY Lima Jose [id number] Law Lima Jose 03/20/2024 2 [place] [facility] Law Lima Jose [id number] Law Lima Jose 04/16/2024 1 [employer] - EXCHANGE PLAN (HMO) BETY Lima Jose [id number] Law Lima Jose 04/16/2024 2 [place] [facility] Law Clarence Garcia [id number] Law Clarence Garcia Notes Date Note Type Note Provider Name and Address Organization Details Recorded Time 05/15/2023 text/html Omeprazole sodiu m bicarb feeling better dietary strategies for the management. 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 Mildly elevat [...] results of that. Lora Martinez MD Attn: Accounting, [address] [facility], [place], [address], [facility] 03/20/2024 22:01:13 04/16/2024 text/html still has that i s sensation that at time food gets stuck he has seen GI. He has seen Heme-Onc they detected leukopenia the workup so far negative but he was getting monthly B12 injections but he had to quit because of the co-pay Lora Martinez MD Attn: Accounting[address] [facility], [place], [address], [facility] - [facility] 04/16/2024 22:13:58
[2024-05-31 13:03] LABS: Basophils Percent Auto 0.6 % (0.2-1.2); Eosinophils Absolute Auto 0.1 K/mm3 (0-0.3); Eosinophils Percent Auto 3.2 % (0-4.4); Hematocrit 44.7 % (42.0-52.0); Hemoglobin 13.7 g/dL (14.0-18.0); Lymphocytes Absolute Auto 1.44 K/mm3 (0.9-3.2); Lymphocytes Percent Auto 46.5 % (18.3-44.2); Mean Corpuscular HGB Conc 30.6 g/dl (32-36); Mean Corpuscular Hemoglobin 26.3 pg (26-34); Mean Corpuscular Volume 85.8 fl (80-100); Mean Platelet Volume 10.2 fl (7.4-10.4); Monocytes Absolute Auto 0.3 K/mm3 (0.1-0.6); Neutrophils Absolute Auto 1.3 K/mm3 (1.3-6.7); Neutrophils Percent Auto 40.7 % (45.5-73.1); Platelet Count Result 292 k/mm3 (150-375); Red Blood Count 5.21 M/mm3 (4.6-6.20); Red Cell Distribution Width 13.3 % (11.5-14.5); White Blood Count 3.1 K/mm3 (4.5-10.0)
[2024-05-31 15:07] LABS: Folic Acid 5.6 ng/mL (2.76->20)
== END 2024-05-31 11:57 | disposition home or self-care (01) ==
LOC: ANHLAB 11:59
PROVIDERS: PCP Internal Medicine; Visit Provider Internal Medicine Hematology & Oncology
DX: D64.9 Anemia, unspecified (principal)
CPT/HCPCS: 36415; 82607; 82746; 85025

== ENCOUNTER 2024-11-08 01:15 | Day surgery (SDC) | payer OTHER, SELFPAY ==
[2024-10-28 13:14] VITALS: BMI 22.6
[2024-11-08 06:56] VITALS: BP 143/95; PULSE 69; RESP 16; TEMP 36.5; O2SAT 100
[2024-11-08] MEDS: LACTATED RINGERS 1,000 ML 150 ML IV CONT (07:05)
--- NOTE | 2024-11-08 07:08 | P.PNAN_ITS ---
Anes - Initial Pre Proc Eval Procedure: Operation Date: 11/08/24 07:45 Proposed Procedures p Esophagogastroduodenoscopy - Bala Chatterjee MD Date/Time: 11/08/24 07:08 Surgeon: Bala Chatterjee MD Pre Op Diagnosis: GERD Patient Data Age: 34 Gender: M Height: 1.88 m Weight: 80.4 kg Last Vital Signs Temp 36.5 C 11/08/24 06:56 Pulse 69 11/08/24 06:56 Resp 16 11/08/24 06:56 BP 143/95 H 11/08/24 06:56 Pulse Ox 100 11/08/24 06:56 O2 Del Method Room Air 11/08/24 06:56 Allergies Allergy/AdvReac Type Severity Reaction Status Date / Time No Known Allergies Allergy Verified 11/08/24 06:56 Home Medications ?Medication ?Instructions ?Recorded ?Confirmed ?Type omeprazole 20 mg-sodium 1 packet PO DAILY 05/04/23 0 10/28/24 History bicarbonate 1,680 mg oral packet lidocaine HCl 2 % mucosal solution 1 applic mucous mem brane TID #300 05/01/24 10/28/24 Rx (Lidocaine Viscous) mL lidocaine HCl 2 % mucosal solution 1 applic mucous mem brane TID PRN 05/01/24 10/28/24 Rx (Lidocaine Viscous) pain #300 mL omeprazole 40 mg capsule,delayed 40 mg PO DAILY #30 ca ps 05/01/24 10/28/24 Rx release Patient hx anesthesia problems: none Family hx anesthesia problems: none Results Review: All pre-operative results and documents have been reviewed as part of the pre-operative evaluation. [facility] Past Medical History Medical History (Updated 11/07/24 @ 15:55 by González Mijares DO) GERD (gastroesophageal reflux disease) Anxiety Asthma Surgical History Surgical History (Updated 03/21/19 @ 21:58 by Angie Baron) History of repair of ACL right Social History Social History (Updated 03/21/19 @ 21:59 by Angie Baron) Smoking status: Never smoker Alcohol intake: never Substance use: never Substance use type: does not use Living arrangements: alone Gender identity (if verbalized by the patient): Male Spiritual care concerns: No Anes - Eval Final PreProcedure Day of Procedure 11/08/24 07:08 Patient weight: normal Heart: regular rate and rhythm Lungs: clear to auscultation and normal air movement Airway: Mallampati scale class II Neurological: alert and oriented Last oral intake: >/= 8 hours ASA classification: II Emergent: no Anesthetic plan: proceed Anesthesia type and monitoring: general GIVS and standard monitoring Results Review: All pre-operative results and documents have been reviewed as part of the pre- operative evaluation. Informed Consent: The patient's anesthetic plan and its attendant risks and benefits were discussed with the patient/family/POA. Questions were solicited and answers provided to the satisfaction of the patient/family/POA.
--- NOTE | 2024-11-08 07:38 | P.HP_ITS ---
History of Present Illness History of Present Illness Consent: Risks, benefits, and alternatives have been discussed and questions answered. Patient agrees to proceed with procedure. Chief complaint: GERD Narrative: Law Garcia is a 34 year old male with dysphagia, omeprazole in the past did not make much difference Review of Systems Review of Systems: All systems reviewed & are unremarkable except as noted in HPI and below PMFSH Past Medical History Medical History (Updated 11/08/24 @ 07:39 by Bala Chatterjee MD) Dysphagia GERD (gastroesophageal reflux disease) Anxiety Asthma Surgical History Surgical History (Updated 03/21/19 @ 21:58 by Angie Baron) History of repair of ACL right Social History Social History (Updated 03/21/19 @ 21:59 by Angie Baron) Smoking status: Never smoker Alcohol intake: never Substance use: never Substance use type: does not use Living arrangements: alone Gender identity (if verbalized by the patient): Male Spiritual care concerns: No Meds Home Medications and Allergies Home Medications ?Medication ?Instructions ?Recorded ?Confirmed ?Type omeprazole 20 mg-sodium 1 packet PO DAILY 05/04/23 0 10/28/24 History bicarbonate 1,680 mg oral packet lidocaine HCl 2 % mucosal solution 1 applic mucous mem brane TID #300 05/01/24 10/28/24 Rx (Lidocaine Viscous) mL lidocaine HCl 2 % mucosal solution 1 applic mucous mem brane TID PRN 05/01/24 10/28/24 Rx (Lidocaine Viscous) pain #300 mL omeprazole 40 mg capsule,delayed 40 mg PO DAILY #30 ca ps 05/01/24 10/28/24 Rx release Allergies Allergy/AdvReac Type Severity Reaction Status Date / Time No Known Allergies Allergy Verified 11/08/24 06:56 Vital Signs Vital Signs - 24 hr 11/08/24 06:56 Temperature 97.7 F Pulse Rate 69 Respiratory Rate 16 Blood Pressure 143/95 H Pulse Oximetry 100 Oxygen Delivery Room Air Exam 2 Const: General: comfortable and no acute distress HENMT: Face/Nose/Sinus: Normal nares present Eyes: General: appearance normal, both eyes and all related structures Neck: Neck: no JVD Resp: Auscultation: clear to auscultation bilaterally Cardio: Rate: regular rate Rhythm: regular rhythm GI: Inspection: non-distended GI Palp: Yes Soft to palpation Skin: General skin exam: normal color Neuro: General: gait normal Speech: normal speech Extrem: General: normal to inspection Psych: Mental Status: mental status grossly normal Assessment and Plan Assessment and plan (1) Dysphagia: Code(s): R13.10 - Dysphagia, unspecified Status: Acute Assessment and Plan: egd with bx
[2024-11-08 07:45] VITALS: BP 126/78; PULSE 87; RESP 16; O2SAT 100
--- NOTE | 2024-11-08 07:46 | S_PTH ---
PATIENT: Law Garcia LOC: [facility] Cook#:[id number] AGE/SX: 34/M ROOM: RE11/08/[address]: Bala Chatterjee MD : 1990 BED: DIS: 11/08/2024 SPEC #: [id number] RECD: 11/08/24 10:01 STATUS: RAMILA MAJOR #: [id number] [place]: 11/08/24 07:[address]: Bala Chatterjee DEPT: [facility] Surgical RECD BY: Taylor Guan ENTERED: 11/08/24 10:01 SP TYPE: Surgical OTHR DR: Joe MartinezMD Tissues: A - Gastric Biopsy B - Esophageal Biopsy C - Esophageal Biopsy Procedures: Hematoxylin and Eosin Stain Gross and Microscopic Level 4
[2024-11-08 07:55] VITALS: BP 113/68; PULSE 73; RESP 17; O2SAT 99
[2024-11-08 08:05] VITALS: BP 129/75; PULSE 83; RESP 20; O2SAT 100
== END 2024-11-08 09:08 | disposition home or self-care (01) ==
PROVIDERS: PCP Internal Medicine; Referring Provider Internal Medicine; Visit Provider Internal Medicine Gastroenterology
PROC: 0DJ08ZZ Inspection of Upper Intestinal Tract, Via Natural or Artificial Opening Endoscopic (ICD-10-PCS; CPT 43239; principal; 2024-11-08 07:45)
DX: K21.00 Gastro-esophageal reflux disease with esophagitis, without bleeding (principal); R13.10 Dysphagia, unspecified
CPT/HCPCS: 43239; 88305; J2704; J7120